=== PATIENT | female | born 1995 | race Caucasian/White ===

== ENCOUNTER 2017-03-15 13:57 | Outpatient (CLI) | payer MEDICAID ==
[2017-03-15 14:25] VITALS: BP 93/53
[2017-03-15 14:32] LABS: BILIRUBIN,URINE NEGATIVE (NEGATIVE); GLUCOSE, URINE (UA) NEGATIVE (NEGATIVE); KETONES,URINE (UA) NEGATIVE (NEGATIVE); LEUKOCYTE ESTERASE, URINE NEGATIVE (NEGATIVE); NITRITE,URINE NEGATIVE (NEGATIVE); OCCULT BLOOD,URINE NEGATIVE (NEGATIVE); PROTEIN,URINE NEGATIVE (NEGATIVE); UROBILINOGEN,URINE 0.2 (NORMAL) E.U./dL (NORMAL)
[2017-03-15 14:33] LABS: CLARITY,URINE CLEAR (CLEAR)
[2017-03-15 14:48] LABS: AMORPHOUS SEDIMENT,UR Rare /LPF; BACTERIA,URINE Rare /HPF (None Seen); RBC,URINE None Seen /HPF (0-5); SQUAMOUS EPITHELIAL CELL,UR FEW Squamous (<= Few)
--- NOTE | 2017-03-15 19:27 | Ultrasound Preliminary Report ---
Exam: US OB LIMITED IMPRESSION: 1. Leong live intrauterine with gestational age 24 weeks 1 day based on current ultraso und for SORAYA 07/04/2017.. [facility] SITE ID: [id number]
--- NOTE | 2017-03-15 19:32 | Ultrasound Report ---
EXAM: LIMITED OBSTETRICAL ULTRASOUND EXAM DATE: 03/15/2017 06:03 PM. CLINICAL HISTORY: Dating, unsure dates. COMPARISON: None. TECHNIQUE: Real-time sonographic evaluation of the fetus performed by the generator repairer. Multiple repre sentative static images were saved for review. GENERAL EVALUATION Leong . Cardiac activity: 154 bpm. movement: Visualized. Presentation: Variable. Placenta: Anterior position. No evidence of previa. Amniotic fluid: Subjectively normal MVP 5.9 cm. biometry: BPD 5.9 cm, 24 weeks 1 day HC 21.8 cm, 23 weeks 6 days AC 20 cm, 24 weeks 5 days FL 4.2 cm, 23 weeks 4 days EFW 671 g ANATOMY Limited anatomic survey demonstrates a normal four-chamber heart, upper and lower extremities, bladde r, lateral ventricles and choroid plexus. No abdominal wall defect seen. MATERNAL STRUCTURES The cervix is closed measuring 5.3 cm in length. The ovaries are normal. No free fluid within the pel vis. IMPRESSION: 1. Leong live intrauterine with gestational age 24 weeks 1 day based on current ultraso und for SORAYA 07/04/2017. [facility] Referring Provider Line: [phone] SITE ID: [id number]
--- NOTE | 2017-04-11 12:23 | PROVIDER PROGRESS NOTE ---
Subjective - Prog Note Date Prog Note Date: 03/15/17 Prog Note Time: 18:00 - Subjective Pt reports feeling: No change Subjective: Patient is a 21-year-old primigravida who only had one OB encounter in [place] with dating ultrasound and subsequently transferred her care to [facility] upon moving to [facility]. She reports left leg numbness without any corresponding edema headaches or visual changes. Her blood pressure is normal. Dating ultrasound was obtained and EFM tracing is category 1. Patient given reassurance and instructed to call our offices if she intends to transfer care.
== END 2017-03-15 17:50 | disposition home or self-care (01) ==
LOC: WFO 13:57 → FBP 14:01 → WFO 17:50
PROVIDERS: ATTEND Obstetrics & Gynecology
DX: O26.892 Other specified pregnancy related conditions, second trimester (principal); R20.0 Anesthesia of skin; Z3A.24 24 weeks gestation of pregnancy
CPT/HCPCS: 76815; 81001; 87086; 99212

== ENCOUNTER 2017-04-30 14:24 | Outpatient (CLI) | payer MEDICAID ==
[2017-04-30 15:45] LABS: HGB - HEMOGLOBIN 10.3 g/dL (12.0-16.0); MEAN CORPUSCULAR HEMOGLOBIN 28.8 pg (27.0-31.0); MEAN CORPUSCULAR HGB CONC 34.4 g/dL (32.0-36.0); MEAN CORPUSCULAR VOLUME 83.9 fL (81.0-99.0); MEAN PLATELET VOLUME 7.7 fL (7.9-10.8); RED BLOOD COUNT 3.58 10^6/uL (4.20-5.40); RED CELL DISTRIBUTION WIDTH 13.2 % (12.0-15.0); WHITE BLOOD COUNT 9.9 x10^3/uL (4.8-10.8)
== END 2017-04-30 14:25 | disposition home or self-care (01) ==
LOC: LAB 14:24
PROVIDERS: ATTEND Obstetrics & Gynecology
DX: Z34.90 Encounter for supervision of normal pregnancy, unspecified, unspecified trimester (principal)
CPT/HCPCS: 36415; 82950; 86850

== ENCOUNTER 2017-05-17 13:02 | Outpatient (CLI) | payer MEDICAID ==
--- NOTE | 2017-05-21 08:56 | Ultrasound Report ---
OB ULTRASOUND: 05/17/2017 HISTORY: Anatomy screen. Last menstrual period: Unknown. First ultrasound: 03/15/2017. TECHNIQUE: Real-time scanning was performed with sales representative graphic art static images obtained. LAST MENSTRUAL PERIOD: 09/27/2016 Clinical Age: 33 weeks 1 day US Age: 33 weeks 6 day EFW Hadlock: 2258 grams EFW% Hadlock: 59% Heart Rate: 132 bpm EDC: 07/04/2017 US EDC: 06/29/2017 BPD Hadlock: 34 weeks 0 days; Mean mm 85 HC Hadlock: 34 weeks 1 day; Mean mm 307 AC Hadlock: 33 weeks 6 days; Mean mm 299 FL Hadlock: 33 weeks 1 day; Mean mm 64 Presentation: breech Placental Location: anterior R Cervical Length: TA 5.4 cm Amniotic Fluid: COURTNEY 26.5; MVP 7.2 cm FINDINGS Evaluation is somewhat limited due to late gestational age. The intracranial and facial structures, heart and outflow tracts, stomach, diaphragm, kidneys, bladder, cord insertion, spine, and all 4 extremities are seen and no gross abnormality is identified. Cervix long and closed 5.4 cm. Amniotic fluid volume 26.5 mL, approximately the 96th percentile. IMPRESSION 1. SINGLE INTRAUTERINE GESTATION WITH AGE BY COMPOSITE ULTRASOUND MEASUREMENTS TODAY 33 WEEKS 6 DAYS, CONCORDANT WITH THE FIRST ULTRASOUND. ESTIMATED WEIGHT IS IN THE 59TH PERCENTILE. 2. BREECH PRESENTATION. 3. COURTNEY 26.5 ML, 96th PERCENTILE. 4. ANATOMIC SCREEN LIMITED BY THE LATE GESTATIONAL AGE, BUT GROSSLY NO ABNORMALITIES ARE SEEN. TD: 05/17/2017 17:04 [facility]
== END 2017-05-17 13:03 | disposition home or self-care (01) ==
LOC: DI 13:02
PROVIDERS: ATTEND Obstetrics & Gynecology
DX: Z36.9 Encounter for antenatal screening, unspecified (principal); O32.1XX0 Maternal care for breech presentation, not applicable or unspecified; O40.3XX0 Polyhydramnios, third trimester, not applicable or unspecified; Z3A.33 33 weeks gestation of pregnancy
CPT/HCPCS: 76811

== ENCOUNTER 2017-06-13 11:26 | Outpatient (CLI) | payer MEDICAID | END 2017-06-13 11:27 | disposition home or self-care (01) | LOC: LAB.R 11:26 | PROVIDERS: ATTEND Obstetrics & Gynecology | DX: Z36.9 Encounter for antenatal screening, unspecified (principal) | CPT/HCPCS: 87077; 87081 ==

== ENCOUNTER 2017-06-20 17:54 | Outpatient (CLI) | payer MEDICAID ==
[2017-06-20 18:10] VITALS: BP 119/65
== END 2017-06-20 19:05 | disposition home or self-care (01) ==
LOC: WFO 17:54 → FBP 17:57 → WFO 19:05
PROVIDERS: ATTEND Obstetrics & Gynecology
DX: O21.2 Late vomiting of pregnancy (principal); O99.89 Other specified diseases and conditions complicating pregnancy, childbirth and the puerperium; R07.81 Pleurodynia; Z3A.37 37 weeks gestation of pregnancy
CPT/HCPCS: 99211

== ENCOUNTER 2017-07-10 08:03 | Inpatient (IN) | payer MEDICAID ==
[2017-07-10 09:31] LABS: RUPTURE OF MEMBRANES PLUS POSITIVE (NEGATIVE)
[2017-07-10] MEDS ORDERED: ONDANSETRON 4 MG/2 ML VIAL IVP PRN (09:35)
[2017-07-10] MEDS ORDERED: PENICILLIN G POTASSIUM 5,000,000 UNIT in SODIUM CHLORIDE 0.9% MINIBAG 100 ML IV ONE (09:35)
[2017-07-10] MEDS ORDERED: SODIUM CHLORIDE FLUSH 0.9% 10 ML SYRINGE IVP PRN (09:35)
[2017-07-10] MEDS ORDERED: OXYTOCIN/SODIUM CHLORIDE 500 ML IV SCH (10:00)
[2017-07-10] MEDS: SODIUM CHLORIDE FLUSH 0.9% 10 ML SYRINGE IVP SCH (12:48)
[2017-07-10] MEDS: LACTATED RINGERS 1,000 ML IV SCH ×3 (12:48→23:03)
--- NOTE | 2017-07-10 12:50 | PROVIDER PROGRESS NOTE ---
Labor Progress Note - Uterine Monitoring Uterine Monitoring Mode: positive: External toco Contraction Frequency (min/apart): Q 4-7 Contraction Intensity: positive: Mild to moderate Uterine Resting Tone: positive: Soft - Monitoring Monitor Mode: positive: External ultrasound Heart Rate Baseline: 120-130's Heart Rate Variability: positive: Moderate (6-25 bmp) Accelerations: positive: Present, 15x15 Decelerations: positive: None Strip Review: positive: Category I - Vaginal Exam Dilation (in cm): Deferred - Labor Progress Note Labor Progress Note/Additional Text: 22 yo with a 40w3d IUP PROM GBS positive Start PCN and pitocin Epidural PRN Expect H&P Dictated [id number]
[2017-07-10 13:04] LABS: BASOPHILS % (AUTO) 0.4 %; EOSINOPHILS # (AUTO) 0.1 10^3/uL (0.0-0.7); HGB - HEMOGLOBIN 11.9 g/dL (12.0-16.0); LYMPHOCYTES # (AUTO) 1.9 10^3/uL (1.5-3.5); LYMPHOCYTES % (AUTO) 16.2 %; MEAN CORPUSCULAR HEMOGLOBIN 27.3 pg (27.0-31.0); MEAN CORPUSCULAR HGB CONC 33.3 g/dL (32.0-36.0); MEAN CORPUSCULAR VOLUME 82.1 fL (81.0-99.0); MEAN PLATELET VOLUME 8.1 fL (7.9-10.8); MONOCYTES # (AUTO) 0.4 10^3/uL (0.0-1.0); MONOCYTES % (AUTO) 3.4 %; NEUTROPHILS # (AUTO) 9.2 10^3/uL (1.5-6.6); PLT - PLATELET COUNT 379 10^3/uL (130-450); RED BLOOD COUNT 4.36 10^6/uL (4.20-5.40); RED CELL DISTRIBUTION WIDTH 15.4 % (12.0-15.0); WHITE BLOOD COUNT 11.6 x10^3/uL (4.8-10.8)
--- NOTE | 2017-07-10 17:35 | PROVIDER PROGRESS NOTE ---
Labor Progress Note - Uterine Monitoring Uterine Monitoring Mode: positive: External toco Contraction Frequency (min/apart): >Q7 min Contraction Intensity: positive: Mild to moderate Uterine Resting Tone: positive: Soft - Monitoring Monitor Mode: positive: External ultrasound Heart Rate Baseline: 130's Heart Rate Variability: positive: Moderate (6-25 bmp) Accelerations: positive: Present, 15x15 Decelerations: positive: None - Vaginal Exam Dilation (in cm): (Deferred) - Labor Progress Note Labor Progress Note/Additional Text: 22 yo with a 40w3d IUP PROM GBS positive Reassuring and maternal status S/p first dose of PCN; will receive next dose shortly Will start pitocin induction of labor Epidural PRN Expect Watch for S/s chorioamnionitis Labs, EKG, Meds, Allergy - Lab Results Fish Bones: 07/10/17 12:45 Other Lab Results: Lab Results x24hrs 07/10/17 07/10/17 Range/Units 12:45 09:10 WBC 11.6 H (4.8-10.8) x10^3/uL RBC 4.36 (4.20-5.40) 10^6/uL Hgb 11.9 L (12.0-16.0) g/dL Hct 35.8 L (37.0-47.0) % MCV 82.1 (81.0-99.0) fL MCH 27.3 (27.0-31.0) pg MCHC 33.3 (32.0-36.0) g/dL RDW 15.4 H (12.0-15.0) % Plt Count 379 (130-450) 10^3/uL MPV 8.1 (7.9-10.8) fL Neut # 9.2 H (1.5-6.6) 10^3/uL Lymph # 1.9 (1.5-3.5) 10^3/uL [place] # 0.4 (0.0-1.0) 10^3/uL Eos # 0.1 (0.0-0.7) 10^3/uL Baso # 0.0 (0.0-0.1) 10^3/uL Absolute Nucleated RBC 0.00 x10^3/uL Nucleated RBC % 0.0 /100WBC Membranes Rupture POSITIVE A (NEGATIVE) - Allergy Allergy: Allergies Allergy/AdvReac Type Severity Reaction Status Date / Time No Known Drug Allergies Allergy Verified 07/10/17 12:04
[2017-07-10] MEDS: PENICILLIN G POTASSIUM 2,500,000 UNIT in SODIUM CHLORIDE 0.9% 100ML 100 ML IV SCH ×3 (18:10→22:00)
--- NOTE | 2017-07-10 18:31 | HISTORY & PHYSICAL EXAMINATION ---
DATE OF SERVICE: 07/10/2017 Physician: Shira Vaca DO IDENTIFICATION: This is a 22-year-old G1, P0 with a 40 and 3/7 week intrauterine . EDC is 07/07/2017, established by a 6-week ultrasound. HISTORY OF PRESENT ILLNESS: This is a patient of [facility] who presented on 07/10/2017 with complaints of spontaneous rupture of membranes. Initial RN examination revealed she was 1 cm dilated, 70% effaced, and -3 station. She is noted to have irregular contractions every 4-7 minutes. heart tones are reactive and category 1 with a baseline in the 120s and 130s. There are no decelerations. AROM Plus was positive and gross fluid was noted on examination. Patient states, however, that the baby is moving well. She denies any vaginal bleeding. Patient is noted to be GBS positive and does not have any known medical allergies. Patient's has been remarkable only for being GBS positive. She was a transfer of care from at about 24 weeks gestation. She had initial care in [place], [place] and later went to [facility]. PAST MEDICAL HISTORY: None. PAST SURGICAL HISTORY: None. ALLERGIES: NO KNOWN DRUG ALLERGIES. SOCIAL HISTORY: She denies any alcohol or illicit drug use. She does not consume tobacco any more. The father of the baby is Antonio and this is a male fetus. Her pharmacy of choice is [facility] and in [place], [place]. She intends to breastfeed and she is open to having epidural for pain control. Her screen printing supervisor will be the on-call physician. PAST OBSTETRICAL HISTORY: Current. PAST GYNECOLOGICAL HISTORY: She denies any abnormal Pap smears or sexually transmitted diseases. Patient was known to have a septated cyst in the right ovary measuring 4.2 x 3.7 x 2.5 cm. FAMILY HISTORY: Noncontributory. REVIEW OF SYSTEMS: Negative unless otherwise stated. She denies any nausea, vomiting, fevers, chills, diarrhea or constipation. PHYSICAL EXAMINATION: VITAL SIGNS: Temperature is 97.9, heart rate 90, blood pressure 118/74, respirations 18, O2 saturation 99% on room air. GENERAL: Patient is a well-developed, well-nourished female in no apparent distress. She is alert and oriented x3. Patient appears to be simple but very pleasant and easy to speak to. HEENT: Within normal limits. CARDIOVASCULAR: Regular. No murmurs or rubs. LUNGS: Lungs are clear to auscultation bilaterally. ABDOMEN: Gravid, nontender. EFW is 7-1/2 pounds. Baby was vertex at her last appointment. LABORATORY DATA: A 6-week ultrasound establish date given unsure dates. On 11/14/2016 at [facility] in [place] an ultrasound showed a single intrauterine with a crown-rump length of 3 cm. Estimated gestational age is 6 weeks 0 days with EDC of 07/10/2017. She had a anatomical survey, which showed an anterior placenta, cervical length of 5.3 cm. GC/CT are both negative. Linden is negative x3 and a male fetus is noted. White blood count on 02/21/2017 is 11.0, H and H at 11.2 and 33.4, platelets 356. Antibody screen is negative, a positive, RPR nonreactive, hepatitis B surface antigen nonreactive, rubella negative. Hemoglobin A1c is 4.9, TSH 1.35. Urinalysis is negative. VZV is negative. HIV nonreactive. On 02/18/2017 one-hour GT is 121. White count of 9.9, H and H 10.3 and 30.1, platelets 377. Antibody screen is negative. GBS is positive. ASSESSMENT: 1. A 22-year-old G1, P0 with a 40 and 3/7 week intrauterine . 2. Premature rupture of membranes. 3. GBS positive. PLAN: 1. We will admit to the hospital. 2. Penicillin 5 million units IV x1 and then 2.5 million units q.4 hours until delivery. 3. Pitocin induction. 4. Expect spontaneous vaginal delivery. 5. Pain control. Patient is welcome to have an epidural when she is in significant pain. TD: 07/10/2017 12:59 ROD
[2017-07-10] MEDS: ACETAMINOPHEN 325 MG TABLET PO SCH ×3 (21:36→22:07)
[2017-07-11] MEDS: PENICILLIN G POTASSIUM 2,500,000 UNIT in SODIUM CHLORIDE 0.9% 100ML 100 ML IV SCH ×6 (03:35→21:54)
[2017-07-11] MEDS: SODIUM CHLORIDE FLUSH 0.9% 10 ML SYRINGE IVP SCH ×3 (03:35→18:10)
[2017-07-11] MEDS: ACETAMINOPHEN 325 MG TABLET PO SCH ×3 (04:35→16:21)
[2017-07-11] MEDS: fentaNYL 100 MCG/2 ML VIAL IVP PRN ×2 (05:58→18:10)
[2017-07-11] MEDS: LACTATED RINGERS 1,000 ML IV SCH ×5 (06:27→23:02)
--- NOTE | 2017-07-11 13:32 | PROVIDER PROGRESS NOTE ---
Labor Progress Note - Uterine Monitoring Uterine Monitoring Mode: positive: External toco Contraction Frequency (min/apart): 3-5 Contraction Intensity: positive: Moderate Uterine Resting Tone: positive: Soft - Monitoring Monitor Mode: positive: External ultrasound Heart Rate Variability: positive: Moderate (6-25 bmp) Accelerations: positive: Present, 15x15 Decelerations: positive: Late (Pt had 6 lateds in a row but was noted to have varribility.) Strip Review: positive: Category II - Vaginal Exam Dilation (in cm): 4 Effacement (%): 90 Station: -1 Cervical Position: Midposition - Labor Progress Note Labor Progress Note/Additional Text: Pt was having jamee lates with variability and accelerations. Pit halved. will continue with pitocin. Pt may have epidural when desired.
--- NOTE | 2017-07-11 16:36 | PROVIDER PROGRESS NOTE ---
Labor Progress Note - Uterine Monitoring Contraction Frequency (min/apart): 3-4 Contraction Intensity: positive: Moderate Uterine Resting Tone: positive: Soft - Monitoring Monitor Mode: positive: External ultrasound Heart Rate Baseline: 130 Heart Rate Variability: positive: Moderate (6-25 bmp) Accelerations: positive: Present, 15x15 Decelerations: positive: None Strip Review: positive: Category I - Labor Progress Note Labor Progress Note/Additional Text: Exam not done. will recheck 1800. consider IUPC.
--- NOTE | 2017-07-11 17:47 | PROVIDER PROGRESS NOTE ---
Labor Progress Note - Uterine Monitoring Uterine Monitoring Mode: positive: External toco Contraction Frequency (min/apart): 3 Contraction Intensity: positive: Moderate to strong Uterine Resting Tone: positive: Soft - Monitoring Monitor Mode: positive: External ultrasound Heart Rate Baseline: 130 Heart Rate Variability: positive: Moderate (6-25 bmp) Accelerations: positive: Present, 15x15 Decelerations: positive: None Strip Review: positive: Category I - Vaginal Exam Dilation (in cm): 5-6 Effacement (%): 100% Station: -1 Cervical Position: Midposition - Labor Progress Note Labor Progress Note/Additional Text: Slow progress. Strip improved with oral hydration. will not place IUPC fro now. push pitocin. Pt is aware of Epidural if desired.
[2017-07-11] MEDS ORDERED: ROPIVACAINE 0.2% PF 10 ML VIAL EPI ONE (20:15)
[2017-07-11] MEDS ORDERED: fent/BUPIV 2 MCG/0.125% 250 ML EP ONE (20:23)
[2017-07-11] MEDS ORDERED: LACTATED RINGERS 500 ML IV ONE (20:41)
[2017-07-11] MEDS ORDERED: ONDANSETRON 4 MG/2 ML VIAL IVP PRN (20:41)
[2017-07-11] MEDS ORDERED: ePHEDrine 50 MG/ML VIAL IVP PRN (20:41)
[2017-07-11] MEDS ORDERED: NALOXONE 0.4 MG/ML VIAL IVP PRN (20:41)
[2017-07-11] MEDS ORDERED: METOCLOPRAMIDE 10 MG/2 ML VIAL IVP PRN (20:41)
[2017-07-11] MEDS ORDERED: NALBUPHINE 10 MG/ML AMP IVP PRN (20:41)
[2017-07-11] MEDS ORDERED: diphenhydrAMINE INJ 50 MG/ML VIAL IVP PRN (20:41)
[2017-07-11] MEDS ORDERED: fent/BUPIV 2 MCG/0.125% 250 ML EP PRN (20:41)
--- NOTE | 2017-07-12 00:34 | PROVIDER PROGRESS NOTE ---
Labor Progress Note - Uterine Monitoring Contraction Frequency (min/apart): 3-4 Contraction Intensity: positive: Strong Uterine Resting Tone: positive: Soft - Monitoring Monitor Mode: positive: External ultrasound Heart Rate Baseline: 120 Heart Rate Variability: positive: Moderate (6-25 bmp) Accelerations: positive: Present, 15x15 (responds to scalp stimulation) Decelerations: positive: Early (varrible) Strip Review: positive: Category II - Vaginal Exam Dilation (in cm): 10 Effacement (%): 100% Station: 1 Cervical Position: Anterior - Labor Progress Note Labor Progress Note/Additional Text: head LOT mother rolled to the right side baby didn't tolerate well. rolled back.
[2017-07-12] MEDS ORDERED: LIDOCAINE 1% 50 ML MDV ONE (01:27)
[2017-07-12] MEDS ORDERED: METHYLERGONOVINE 0.2 MG/ML AMP ONE (01:28)
[2017-07-12] MEDS ORDERED: MINERAL OIL LIGHT 10 ML MC ONE (01:36)
[2017-07-12] MEDS ORDERED: LACTATED RINGERS 1,000 ML IV ONE (01:42)
[2017-07-12] MEDS ORDERED: diphenhydrAMINE 25 MG CAPSULE PO PRN (03:42)
[2017-07-12] MEDS ORDERED: WITCH HAZEL/GLYCERIN 1 EACH MED..PAD TOP PRN (03:42)
[2017-07-12] MEDS ORDERED: OXYTOCIN/SODIUM CHLORIDE 250 ML IV SCH (03:42)
--- NOTE | 2017-07-12 03:50 | DELIVERY NOTE ---
Delivery Note - Labor Labor: positive: Induced by oxytocin - Delivery Method Delivery Method: positive: Vacuum assist - Presentation Presentation: positive: Vertex, OA - occiput anterior - Nuchal Cord Nuchal Cord: positive: None - Anesthetic Anesthetic Type: Anesthetic: positive: Lidocaine - 1% plain - Amniotic Fluid Description Amniotic Fluid Description: positive: Clear (second stage Mec) - Vacuum Use Indication for Vacuum Use: positive: Suspicion of immediate or potential compromise Type of Vacuum Cup: positive: Cup: Mushroom Type Vacuum Extraction: positive: Successful (pulled thru 3 contractions. Popoff with first contraction) - Episiotomy Type Episiotomy Type: positive: Midline (4th degree) - Laceration Laceration: positive: Labial (bilateral) - Suture Suture Type: positive: Vicryl Suture Size: positive: 2-0 (for rectal sphinctor), 3-0 (for the remaindure) - Delivery Outcome Delivery Outcome: positive: Livebirth (male, apgars 5/8, weight 8lb 4 oz.) - Ridgeville Ridgeville: positive: Bulb syringe, Stimulated, Warmed sex: positive: Male - Cord Cord: positive: 3 vessels - Placenta Placenta: positive: Intact, Spontaneous - Estimated Blood Loss Estimated Blood Loss (in cc): 500 - Delivery Comments (Free Text/Narrative) Delivery Comments (Free Text/Narrative): 3:10 shoulder dystocia. episiotomy cut followed with episoproctomy cut. delivered posterior shoulder first dictation [id number].
[2017-07-12] MEDS ORDERED: LACTATED RINGERS 1,000 ML IV SCH (04:00)
[2017-07-12] MEDS: IBUPROFEN 800 MG TABLET PO SCH ×4 (06:00→23:58)
[2017-07-12] MEDS: HYDROCORTISONE/PRAMOXINE 10 GM PR PRN ×2 (06:01→15:05)
[2017-07-12 06:11] LABS: BASOPHILS % (AUTO) 0.3 %; EOSINOPHILS % (AUTO) 0.1 %; HGB - HEMOGLOBIN 8.5 g/dL (12.0-16.0); LYMPHOCYTES # (AUTO) 1.5 10^3/uL (1.5-3.5); LYMPHOCYTES % (AUTO) 8.5 %; MEAN CORPUSCULAR HEMOGLOBIN 27.1 pg (27.0-31.0); MEAN CORPUSCULAR HGB CONC 32.7 g/dL (32.0-36.0); MEAN CORPUSCULAR VOLUME 82.8 fL (81.0-99.0); MEAN PLATELET VOLUME 7.8 fL (7.9-10.8); MONOCYTES # (AUTO) 0.9 10^3/uL (0.0-1.0); MONOCYTES % (AUTO) 4.8 %; NEUTROPHILS # (AUTO) 15.5 10^3/uL (1.5-6.6); NEUTROPHILS % (AUTO) 86.3 %; PLT - PLATELET COUNT 340 10^3/uL (130-450); RED BLOOD COUNT 3.15 10^6/uL (4.20-5.40); RED CELL DISTRIBUTION WIDTH 14.9 % (12.0-15.0); WHITE BLOOD COUNT 17.9 x10^3/uL (4.8-10.8)
--- NOTE | 2017-07-12 06:56 | OPERATIVE REPORT ---
DATE OF SERVICE: 07/12/2017 Physician: Pavan Logan MD DIAGNOSES 1. Term cyesis 40 weeks and 5 days. 2. Spontaneous rupture of membranes without labor. 3. Pitocin induction. 4. Vacuum-assisted vaginal delivery. 5. Shoulder dystocia. DESCRIPTION OF OPERATION: The patient reached complete at roughly 1800 on the morning of 07/12/2017. She was allowed to labor down. Her strip prior to delivery had episodes of late decelerations which responded to IV fluids as well as position change. During her second stage, she developed episodes of bradycardia down to the 80s which did, however respond. Because of concerns of wellbeing, she started pushing at 0130. She pushed well and at 0207, she delivered a live male infant with Apgars 5 and 8, weighing 8 pounds 4 ounces. Her delivery itself was complicated with a shoulder dystocia, which lasted for 3 minutes and 10 seconds. During this time, initially she was treated with Darcy maneuvers as well as suprapubic pressure to try and dislodge the shoulder. This was unsuccessful, so an episiotomy was cut. Attempts were made to add a corkscrew maneuver to see if the baby could be rotated, this was unsuccessful. Trying to reach to see if there was a hand was also unsuccessful. At this point, an episioproctotomy was cut and was able to reach the posterior shoulder, which was the left arm. This was brought across the chest and delivered, following which the remainder of the infant delivered. The baby was taken immediately over to the warmer, at which time the baby was given PPV. The library technology instructor was present as well as 2 additional nurses. The baby responded fairly quickly and had a heart rate initially in the 140s. Cord blood gases were obtained at time of delivery; they were noted to be 7.32 and 7.35. The placenta followed at 0220. It was inspected and felt to be complete. Upon inspection, the vaginal area showed evidence of episioproctotomy as previously cut. There was also labial lacerations on either side anteriorly. The rectal mucosa was closed utilizing 3-0 Vicryl. Following this, the sphincter was closed utilizing 2-0 Vicryl in [id number] both anterior, superior, posterior, and inferior. Care was taken to reapproximate this. An additional 2 sutures were placed in the rectovaginal fascial area to try and bring this back together. The vaginal mucosa was then closed using a running locking suture of 3-0 Vicryl. The perineum was rebuilt with additional interrupted sutures of 3-0 Vicryl. Following this, a standard Z stitch was used as well as a subcuticular stitch and brought up to the perineum. There was evidence of good repair and no bleeding from this area. At this point, both labial lacerations were closed with 3-0 Vicryl subcuticular. Because of the trauma, a Carmen catheter was placed. Sponge and needle counts were performed and these were both noted to be correct. The vaginal pack, which was used, was also noted to be also out of the vagina. The patient tolerated the delivery well. A Carmen catheter was placed to allow to her to be able to get rest tonight and will be removed in the morning. TD: 07/12/2017 04:10 ROD
[2017-07-12] MEDS: oxyCODONE 5 MG TABLET PO PRN ×4 (09:46→23:22)
[2017-07-12] MEDS: ACETAMINOPHEN 500 MG TABLET PO PRN ×3 (09:46→22:32)
--- NOTE | 2017-07-12 13:37 | ANESTHESIA POST OP EVALUATION ---
Anesthesia Post Eval - Other Details/Therapies Other Details/Therapies: Post epidural placement: Patient states no back pain or headache. Does state that right foot and up to knee is still numb. able to ambulate without problem. States she was satisfied with the epidural.
[2017-07-12] MEDS ORDERED: MAGNESIUM HYDROXIDE 2,400 MG/30 ML UDC PO SCH (21:00)
[2017-07-12] MEDS: DOCUSATE SODIUM 250 MG CAPSULE PO SCH (21:08)
[2017-07-13] MEDS: ACETAMINOPHEN 500 MG TABLET PO PRN ×3 (04:36→16:33)
[2017-07-13] MEDS: IBUPROFEN 800 MG TABLET PO SCH ×3 (06:02→20:04)
[2017-07-13] MEDS: DOCUSATE SODIUM 250 MG CAPSULE PO SCH ×2 (08:44→20:11)
[2017-07-13] MEDS ORDERED: LACTULOSE 10 GM /15 ML UDC PO SCH (09:00)
--- NOTE | 2017-07-13 10:33 | PROVIDER PROGRESS NOTE ---
Subjective - General Admit Date: 07/10/17 Procedure Date: 07/12/17 Post Op Days: 1 Procedure Performed: Complicated Vag Del w Shoulder Dystocia & 4th deg Proctoepisotomy - Review of Systems Wound/Incisions: positive: No drainage, Erythema, Other Drain Type: Carmen removed General: positive: Fatigue, Other (No fever or night sweats) HEENT: positive: No symptoms Pulmonary: positive: No symptoms Cardiovascular: positive: No symptoms Gastrointestinal: positive: Flatus, Other (No passage of stool) Genitourinary: positive: Other (Repair intact) Musculoskeletal: positive: No symptoms Skin: positive: No symptoms Psychiatric: positive: No symptoms Objective - Patient Data Vital Signs: Vital Signs x48h Temp Pulse Resp BP Pulse Ox 07/13/17 07:47 72 18 100/57 L 100 07/13/17 04:10 98.2 F 61 18 92/45 L 99 Intake & Output: Intake and Output Totals x24h 07/11/17 07/12/17 07/13/17 23:59 23:59 23:59 Intake Total 4147.5 550 360 Output Total 1 3925 705 Balance 4146.5 -3375 -345 - Lab Results Lab Results: 07/12/17 05:34 - Current Medications Current Medications: Current Medications Generic Name Dose Route Start Last Admin Trade Name Freq PRN Reason Stop Dose Admin Acetaminophen 1,000 mg 07/12/17 09:07 07/13/17 10:09 Tylenol PO 1,000 mg Q6HR PRN Administration Pain or Fever > 38C (100.4F) Docusate Sodium 250 mg 07/12/17 21:00 07/13/17 08:44 Colace 250mg Capsule PO 250 mg BID SAM Administration Hydrocortisone/Pramoxine 1 spray 07/12/17 03:42 07/12/17 15:05 Epifoam VA 5 spray QID PRN Administration Hemorrhoids Lactated Ringer's 1,000 mls @ 100 mls/hr 07/12/17 04:00 07/12/17 10:48 Lr IV 100 mls/hr .Q10H SAM Administration Ibuprofen 800 mg 07/12/17 04:00 07/13/17 06:02 Motrin PO 800 mg Q6H SAM Administration Lactulose 10 gm 07/13/17 09:00 07/13/17 08:43 Enulose PO 10 gm DAILY SAM Administration Magnesium Hydroxide 2,400 mg 07/12/17 21:00 07/12/17 21:08 Milk Of Magnesia PO 2,400 mg QPM SAM Administration Oxycodone HCl 5 mg 07/12/17 03:42 07/12/17 23:22 Roxicodone PO 5 mg Q4HR PRN Administration Severe Pain Physical Exam - Physical Exam General Appearance: WD/WN, no apparent distress Eyes, Ears, Nose, Throat Exam: normal ENT inspection, other (Moist mucous membranes) Cardiovascular/Respiratory: regular rate, rhythm, no M/R/G, normal breath sounds Gastrointestinal/Abdominal: Normal bowel sounds, Non tender, Soft Pelvic Exam: external exam normal (Repair intact), other (Uterus 18 weeks size firm) Extremity: normal range of motion, non-tender Neurologic: normal mood/affect, oriented x 3 Skin Exam: warm/dry Assessment/Plan - Assessment/Plan Assessment: Fourth degree laceration care requires careful and intense wound care including high-fiber diet, pushing fluids, and sitz bath. Patient is just recovering function after episiotomy and traumatic delivery. We discussed the importance of her involvement in perineal care. We also discussed the review risks of repair disruption if she experiences constipation. Patient is breast-feeding well and has no symptoms of mood disturbance/ dysphoria. Plan: PLAN * Colace 250 mg twice daily; * lactulose every morning; * milk of magnesia nightly; * sitz bath or shower perineal washings; * continued supportive care * I would preferred to keep the patient until she has her first bowel movement.
[2017-07-13 12:19] LABS: BASOPHILS # (AUTO) 0.1 10^3/uL (0.0-0.1); BASOPHILS % (AUTO) 0.5 %; EOSINOPHILS # (AUTO) 0.3 10^3/uL (0.0-0.7); HGB - HEMOGLOBIN 7.6 g/dL (12.0-16.0); LYMPHOCYTES # (AUTO) 2.2 10^3/uL (1.5-3.5); LYMPHOCYTES % (AUTO) 20.2 %; MEAN CORPUSCULAR HEMOGLOBIN 27.5 pg (27.0-31.0); MEAN CORPUSCULAR HGB CONC 33.1 g/dL (32.0-36.0); MEAN CORPUSCULAR VOLUME 83.1 fL (81.0-99.0); MEAN PLATELET VOLUME 7.7 fL (7.9-10.8); MONOCYTES # (AUTO) 0.5 10^3/uL (0.0-1.0); MONOCYTES % (AUTO) 4.7 %; NEUTROPHILS # (AUTO) 7.8 10^3/uL (1.5-6.6); NEUTROPHILS % (AUTO) 71.6 %; PLT - PLATELET COUNT 317 10^3/uL (130-450); RED BLOOD COUNT 2.77 10^6/uL (4.20-5.40); RED CELL DISTRIBUTION WIDTH 15.1 % (12.0-15.0); WHITE BLOOD COUNT 10.9 x10^3/uL (4.8-10.8)
[2017-07-13] MEDS ORDERED: diphenhydrAMINE 25 MG CAPSULE PO PRN (18:50)
[2017-07-13] MEDS ORDERED: oxyCODONE 5 MG TABLET PO PRN (18:51)
[2017-07-13] MEDS ORDERED: ACETAMINOPHEN 500 MG TABLET PO PRN (18:51)
--- NOTE | 2017-07-13 20:32 | PROVIDER PROGRESS NOTE ---
Subjective - General Admit Date: 07/10/17 Procedure Date: 07/12/17 Post Op Days: 1 Procedure Performed: Complicated Vag Del w Shoulder Dystocia & 4th deg Proctoepisotomy - Review of Systems Wound/Incisions: positive: No drainage, Other (Patient had a uneventful bowel movement without any sensation of tearing) Drain Type: Carmen removed General: positive: Fatigue (Patient is fatigued and has a hemoglobin of 7.8. She is been able to walk around care for her baby and shower. We discussed her anemia and at this point she does not want transfusion.), Other (No fever or night sweats) HEENT: positive: No symptoms Pulmonary: positive: No symptoms Cardiovascular: positive: No symptoms Gastrointestinal: positive: Flatus, Other (Patient reports passage of a small amount of soft stool. No rectal bleeding reported) Genitourinary: positive: Other (Repair intact) Musculoskeletal: positive: No symptoms Skin: positive: No symptoms Psychiatric: positive: No symptoms - Other Other Information/Narrative: Patient feels well and is working on her breast-feeding technique diligently. Though fatigued due to anemia she does not feel impaired and is starting to recover the activities of daily living. She is hemodynamically stable. We will continue stool softeners and reevaluate in the morning. Objective - Patient Data Vital Signs: Vital Signs x48h Pulse Resp BP Pulse Ox 07/13/17 17:08 76 18 112/69 100 Intake & Output: Intake and Output Totals x24h 07/11/17 07/12/17 07/13/17 23:59 23:59 23:59 Intake Total 4147.5 550 860 Output Total 1 3925 1155 Balance 4146.5 -3375 -295 - Lab Results Lab Results: 07/13/17 12:00 Other Lab Results: Lab Results x24hrs 07/13/17 Range/Units 12:00 WBC 10.9 H (4.8-10.8) x10^3/uL RBC 2.77 L (4.20-5.40) 10^6/uL Hgb 7.6 L (12.0-16.0) g/dL Hct 23.0 L (37.0-47.0) % MCV 83.1 (81.0-99.0) fL MCH 27.5 (27.0-31.0) pg MCHC 33.1 (32.0-36.0) g/dL RDW 15.1 H (12.0-15.0) % Plt Count 317 (130-450) 10^3/uL MPV 7.7 L (7.9-10.8) fL Neut # (Auto) 7.8 H (1.5-6.6) 10^3/uL Lymph # (Auto) 2.2 (1.5-3.5) 10^3/uL [place] # (Auto) 0.5 (0.0-1.0) 10^3/uL Eos # (Auto) 0.3 (0.0-0.7) 10^3/uL Baso # (Auto) 0.1 (0.0-0.1) 10^3/uL Absolute Nucleated RBC 0.00 x10^3/uL Nucleated RBC % 0.0 /100WBC - Current Medications Current Medications: Current Medications Generic Name Dose Route Start Last Admin Trade Name Freq PRN Reason Stop Dose Admin Docusate Sodium 250 mg 07/13/17 21:00 07/13/17 20:11 Colace 250mg Capsule PO 250 mg BID SAM Administration Hydrocortisone/Pramoxine 1 spray 07/12/17 03:42 07/12/17 15:05 Epifoam ME 5 spray QID PRN Administration Hemorrhoids Lactated Ringer's 1,000 mls @ 100 mls/hr 07/12/17 04:00 07/12/17 10:48 Lr IV 100 mls/hr .Q10H SAM Administration Ibuprofen 800 mg 07/13/17 19:00 07/13/17 20:04 Motrin PO 800 mg Q6H SAM Administration Magnesium Hydroxide 2,400 mg 07/13/17 21:00 07/13/17 20:08 Milk Of Magnesia PO 2,400 mg QPM SAM Administration
[2017-07-13] MEDS ORDERED: MAGNESIUM HYDROXIDE 2,400 MG/30 ML UDC PO SCH (21:00)
[2017-07-14] MEDS: IBUPROFEN 800 MG TABLET PO SCH ×2 (02:11→08:38)
[2017-07-14] MEDS: DOCUSATE SODIUM 250 MG CAPSULE PO SCH (08:37)
[2017-07-14] MEDS ORDERED: LACTULOSE 10 GM /15 ML UDC PO SCH (09:00)
--- NOTE | 2017-07-14 09:30 | Discharge Plan ---
Discharge Plan Disposition: 01 Home, Self Care Condition: Stable Diet: Regular (Not regular, high fiber high protein high iron. Patient is to have a dietitian consult either before discharge or shortly thereafter.) Activity Restrictions: Activity as Tolerated Shower Restrictions: No (Recommend daily shower and wound wash) Driving Restrictions: Yes (Driving restricted for 7 days, no driving while taking narcotics) Weight Bearing: Full Weight Follow-Up Care: Dietitian (Needs social work consult as well) No Smoking: If you smoke, Please STOP! Call for help. Follow-up with: Pavan Logan MD [Provider Admit Priv/Credential] -
[2017-07-14] MEDS ORDERED: SODIUM CHLORIDE FLUSH 0.9% 10 ML SYRINGE ONE (10:12)
[2017-07-14] MEDS ORDERED: FERRIC GLUCONATE 125 MG in SODIUM CHLORIDE 0.9% 100ML 100 ML IV ONE (11:00)
[2017-07-14 16:22] VITALS: BP 116/63
--- NOTE | 2017-07-15 04:49 | DISCHARGE SUMMARY ---
Physician: Pavan Mcdaniel MD DATE OF ADMISSION: 07/10/2017 DATE OF DISCHARGE: 07/14/2017 DIAGNOSES 1. Term , in labor. 2. Group B streptococcus positive. 3. Complicated delivery with shoulder dystocia, including proctoepisiotomy to resolve. 4. Severe anemia. PROCEDURE: Vaginal delivery complicated by shoulder dystocia necessitating proctoepisiotomy and repair (Dr. Pavan Logan). COMPLICATIONS: Shoulder dystocia. HISTORY: The patient is a 22-year-old primigravida at 40 weeks 3 days who was admitted at noon on July [address] Vaca. The patient had ruptured membranes at the time, and dilatation was 1 cm, 70% effaced, and -3 station. The patient was begun on penicillin prophylaxis and Pitocin drip. Reference Dr. Vaca's dictated note. On July 11, Dr. Pavan Logan assumed care and continued Pitocin but noted some subtle lates and declared a category 2 strip. The patient became complete at or about 0040 hours on July 12. Tracing changes continued, and strip continued to be category 2. The fetus did respond to scalp stimulation. At about 3:00, the patient delivered with the aid of a vacuum that required 3 successful attempts and 1 pop-off. The vacuum was prompted by suspicion of potential compromise. Unfortunately, shoulder dystocia ensued that was severe and did not resolve with Darcy procedure and corkscrew. To salvage the fetus, proctoepisiotomy was accomplished. Total shoulder dystocia time, 3 minutes 10 seconds. Estimated blood loss was 500. A living male weighing 8 pounds 4 ounces and scoring Apgars of 5 and 8 was born. There was no evident neurologic damage of the . On July 13, Dr. Pavan Mcdaniel assumed care responsibilities. The patient was recovering well. She was begun on a high fiber protocol for the fourth-degree extension. She remained afebrile and hemodynamically stable. She was noted to be severely anemic with a hemoglobin of 8.5. She continued her activities. Bowel protocol included Colace 250 b.i.d. with lactulose 10 grams daily in the morning and evening, 2400 mg of milk of magnesia. On July 13, patient had a small formed bowel movement that did not result in any compromise of the repair. Her hemoglobin equilibrated at 7.9. Transfusion was discussed in order to improve fatigue and provide better wound healing. After discussion and contemplation, patient rejected transfusion because she feels well enough. 120 mg of ferrous gluconate IV transfusion was given. We had an extensive discussion of fourth-degree lacerations and the need for fastidious wound care. We discussed daily sitz baths and/or shower cleansing of the area. A high fiber diet and fiber supplementation protocol was discussed. A high protein diet also was discussed. The patient is currently taking an iron supplement of 64 mg daily, which she tolerates well. She was instructed to double that to a b.i.d. regimen and continue vitamins. Arrangements for instruction on a high protein, high fiber diet were made. The patient was originally to meet with social work, but they are not available on the weekend. We will arrange a post-discharge social work consult as well as dietary. The patient will see Dr. Logan early this week for wound check. DISCHARGE MEDICATIONS 1. Acetaminophen 1000 q.6 hours p.r.n. 2. Colace 250 b.i.d. 3. Epifoam 1 spray p.r.n. q.i.d. 4. Motrin 800 mg q.6 hours. 5. Lactulose 10 mg daily. 6. Oxycodone 5 mg q.4 hours p.r.n. severe breakthrough pain. Prior to discharge, nursing reviewed and reinforced wound care instructions. The patient is instructed to call the office or on-call provider if she develops constipation, rectal bleeding, foul discharge, fever, rectal pain, or syncopal episode. TD: 07/14/2017 09:40 ROD
== END 2017-07-14 16:15 | disposition home or self-care (01) | DRG 775 ==
LOC: WFO 08:03 → FBP 08:05 → WFO 09:34 → FBP 09:35 → UNDODISIN 07-13 18:18
PROVIDERS: ADMIT Obstetrics & Gynecology; ATTEND Obstetrics & Gynecology
PROC: 3E033VJ Introduction of Other Hormone into Peripheral Vein, Percutaneous Approach (ICD-10-PCS; 2017-07-10)
PROC: 10D07Z6 Extraction of Products of Conception, Vacuum, Via Natural or Artificial Opening (ICD-10-PCS; principal; 2017-07-12)
PROC: 0W8NXZZ Division of Female Perineum, External Approach (ICD-10-PCS; 2017-07-12)
PROC: 0HQ9XZZ Repair Perineum Skin, External Approach (ICD-10-PCS; 2017-07-12)
DX: O42.12 Full-term premature rupture of membranes, onset of labor more than 24 hours following rupture (principal); O41.1230 Chorioamnionitis, third trimester, not applicable or unspecified; D62 Acute posthemorrhagic anemia; Z3A.40 40 weeks gestation of pregnancy; Z37.0 Single live birth; O99.824 Streptococcus B carrier state complicating childbirth; O77.0 Labor and delivery complicated by meconium in amniotic fluid; O70.0 First degree perineal laceration during delivery; O66.0 Obstructed labor due to shoulder dystocia; O76 Abnormality in fetal heart rate and rhythm complicating labor and delivery; O99.02 Anemia complicating childbirth; Z87.891 Personal history of nicotine dependence
CPT/HCPCS: 36415; 84112; 85025; 88307; 99212

== ENCOUNTER 2017-08-05 23:14 | Emergency (ER) | payer MEDICAID ==
--- NOTE | 2017-08-05 23:44 | ED Physician Documentation ---
PD HPI BACK PAIN - Stated complaint Stated Complaint: BACK PX - Chief complaint Chief Complaint: Back Pain - History obtained from History obtained from: Patient - History of Present Illness Timing - onset: How many weeks ago (3) Timing - details: Abrupt onset, Intermittant (episodes lasting 30-45 minutes) Location: Mid Quality: Pain Associated symptoms: No: Fever Improves with: Nothing Worsened by: Other (no apparent inciting/exacerbating factors) Recently seen: Not recently seen - Additional information Additional information: gave 4 weeks ago; chief c/o is 3 weeks of episodic mid-level back pain that radiates around sides/flanks, usually R>L. denies anterior chest or abdominal pain. episodes last 30-45 minutes and have no apparent inciting/ exacerbating/ameliorating factors. Review of Systems Constitutional: denies: Fever, Chills, Sweats Cardiac: reports: Reviewed and negative Respiratory: reports: Reviewed and negative GI: reports: Abdominal Pain (bilateral flanks of abdomen, although not anterior) . denies: Nausea, Vomiting, Constipation, Diarrhea : reports: Frequency. 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: None : None HEENT: None Psych: None Musculoskeletal: None Derm: None - Past Surgical History Past Surgical History: No - Allergies Allergies/Adverse Reactions: Allergies Allergy/AdvReac Type Severity Reaction Status Date / Time No Known Drug Allergies Allergy Verified 08/05/17 23:28 - Social History Does the pt smoke?: No Smoking Status: Never smoker Does the pt drink ETOH?: No Does the pt have substance abuse?: No - Immunizations Immunizations are current?: Yes - POLST Patient has POLST: No PD ED PE NORMAL - Vitals Vital signs reviewed: Yes - General General: Alert and oriented X 3, No acute distress, Well developed/nourished - Cardiac Cardiac: RRR, No murmur - Respiratory Respiratory: No respiratory distress, Clear bilaterally - Abdomen Abdomen: Soft, Non tender, Non distended - Back Back: No CVA TTP, No spinal TTP - Derm Derm: No rash Results - Vitals Vitals: Vital Signs - 24 hr 08/05/17 08/06/17 08/06/17 23:26 00:13 00:47 Temperature 36.4 C L Heart Rate 73 Respiratory 16 16 16 Rate Blood Pressure 115/62 O2 Saturation 98 08/06/17 01:24 Temperature 37.1 C Heart Rate 87 Respiratory 18 Rate Blood Pressure 108/87 H O2 Saturation 98 Oxygen O2 Source Room air - Labs Labs: Laboratory Tests 08/06/17 08/06/17 00:24 00:24 WBC 9.4 RBC 4.09 L Hgb 11.3 L Hct 34.5 L MCV 84.5 MCH 27.8 MCHC 32.8 RDW 14.9 Plt Count 361 MPV 6.7 L Neut # (Auto) 5.6 Lymph # (Auto) 2.9 Ripley # (Auto) 0.5 Eos # (Auto) 0.4 Baso # (Auto) 0.1 Absolute Nucleated RBC 0.00 Nucleated RBC % 0.0 Sodium 142 Potassium 3.6 Chloride 107 Carbon Dioxide 27 Anion Gap 8.0 BUN 15 Creatinine 0.8 Estimated GFR (MDRD) 89 Glucose 93 Calcium 9.7 Total Bilirubin 0.3 AST 56 H ALT 31 Alkaline Phosphatase 89 Total Protein 7.7 Albumin 4.0 Globulin 3.7 Albumin/Globulin Ratio 1.1 Lipase 32 - Rads (name of study) RUQ US Radiology: Prelim report reviewed, See rad report PD MEDICAL DECISION MAKING - ED course Complexity details: reviewed results, re-evaluated patient, considered differential, d/w patient ED course: US reveals gallstones, although they are quite small and mobile. The description of her symptoms, the location, and episodic nature are c/w biliary colic. I discussed results with patient and instructed her to f/u with gen. surgery. I explained that it is possible the gallstones are an incidental finding and not the cause of her pain, although further emergent testing is not indicated at this time regarding other causes. - Sepsis Event Vital Signs: Vital Signs - 24 hr 08/05/17 08/06/17 08/06/17 23:26 00:13 00:47 Temperature 36.4 C L Heart Rate 73 Respiratory 16 16 16 Rate Blood Pressure 115/62 O2 Saturation 98 08/06/17 01:24 Temperature 37.1 C Heart Rate 87 Respiratory 18 Rate Blood Pressure 108/87 H O2 Saturation 98 Oxygen O2 Source Room air Departure - Departure Disposition: 01 Home, Self Care Clinical Impression: Gallstones Back pain Qualifiers: Back pain location: low back pain Chronicity: acute Back pain laterality: bilateral Sciatica presence: without sciatica Qualified Code(s): M54.5 - Low back pain Condition: Good Instructions: ED Abdominal Pain Gallstone Poss, ED Neck Back Pain General Follow-Up: Joaquim Garrison MD [Provider Admit Priv/Credential] - Comments: The ultrasound shows that you have several small gallstones. Based on the description of your symptoms, I suspect the gallstones are causing your painful episodes. You should follow up with a general surgeon to discuss further testing and/or treatment of this problem. It is possible the gallstones are coincidental, and that something else is causing the pain. Based on your exam and blood tests, there does not appear to be a serious or obvious cause of your pain besides the gallstones at this time. Further testing might be necessary if it is determined that the gallstones are not causing your pain. You can also follow up with your primary care physician to discuss further testing. You should return to the emergency department if the pain becomes severe, or if new symptoms develop (such as fever or vomiting blood). Discharge Date/Time: 08/06/17 01:24
[2017-08-06 00:31] LABS: BASOPHILS # (AUTO) 0.1 10^3/uL (0.0-0.1); BASOPHILS % (AUTO) 0.6 %; EOSINOPHILS # (AUTO) 0.4 10^3/uL (0.0-0.7); EOSINOPHILS % (AUTO) 4.2 %; HGB - HEMOGLOBIN 11.3 g/dL (12.0-16.0); LYMPHOCYTES # (AUTO) 2.9 10^3/uL (1.5-3.5); LYMPHOCYTES % (AUTO) 31.1 %; MEAN CORPUSCULAR HEMOGLOBIN 27.8 pg (27.0-31.0); MEAN CORPUSCULAR HGB CONC 32.8 g/dL (32.0-36.0); MEAN CORPUSCULAR VOLUME 84.5 fL (81.0-99.0); MEAN PLATELET VOLUME 6.7 fL (7.9-10.8); MONOCYTES # (AUTO) 0.5 10^3/uL (0.0-1.0); MONOCYTES % (AUTO) 4.8 %; NEUTROPHILS # (AUTO) 5.6 10^3/uL (1.5-6.6); NEUTROPHILS % (AUTO) 59.3 %; PLT - PLATELET COUNT 361 10^3/uL (130-450); RED BLOOD COUNT 4.09 10^6/uL (4.20-5.40); RED CELL DISTRIBUTION WIDTH 14.9 % (12.0-15.0); WHITE BLOOD COUNT 9.4 x10^3/uL (4.8-10.8)
[2017-08-06 00:42] LABS: ALBUMIN/GLOBULIN RATIO 1.1 (1.0-2.2); BILIRUBIN,TOTAL 0.3 mg/dL (0.2-1.0); CALCIUM 9.7 mg/dL (8.5-10.3); CREATININE 0.8 mg/dL (0.4-1.0); TOTAL PROTEIN 7.7 g/dL (6.7-8.2)
--- NOTE | 2017-08-06 01:05 | Ultrasound Report ---
Procedure Date: 08/06/2017 Accession Number: [id number] / [id number] Procedure: US - Abdomen Limited CPT Code: FULL RESULT: EXAM: ABDOMEN ULTRASOUND LIMITED, RUQ EXAM DATE: 08/06/2017 12:42 AM. CLINICAL HISTORY: Abdominal pain. COMPARISON: None. TECHNIQUE: Real-time scanning was performed with static images obtained. FINDINGS: Liver: Heterogeneous and echogenic. 17.3 cm. Main portal vein flow: Hepatopetal. Gallbladder: Multiple tiny mobile stones in the gallbladder. Wall thickness is normal at 1.3 mm. No focal tenderness is noted over the gallbladder. Biliary System: CBD measures 2 mm. No intrahepatic or extrahepatic ductal dilatation. Other: The visualized portions of the pancreas show no focal abnormality. Right kidney measures 9.9 cm and appears normal. IMPRESSION: 1. Multiple tiny mobile stones in the gallbladder without evidence of cholecystitis. 2. No biliary dilatation seen. 3. Fatty liver. RADIA
[2017-08-06 01:25] VITALS: BP 108/87
== END 2017-08-06 01:24 | disposition home or self-care (01) ==
LOC: ED 23:14
DX: K80.80 Other cholelithiasis without obstruction (principal); M54.5 Low back pain
CPT/HCPCS: 36415; 76705; 80053; 83690; 85025; 99283

== ENCOUNTER 2017-09-24 11:06 | Day surgery (SDC) | payer MEDICAID ==
--- NOTE | 2017-09-24 08:36 | ANESTHESIA ---
Pre-Anesthesia VS, & Labs - Diagnosis change in bowel habits - Procedure colonoscopy Height 5 ft 3 in Body Mass Index 32.5 - NPO >8 hours - Is Patient ?: No - Lab Results Lab results reviewed: Yes Home Medications and Allergies Home Medications: Ambulatory Orders Medication Instructions Recorded Confirmed Docusate Sodium 250Mg Capsule 250 mg PO DAILY 09/23/17 09/24/17 [Colace 250Mg Capsule] oxyCODONE ER [OxyCONTIN] 1 PRN 09/24/17 Allergies/Adverse Reactions: Allergies Allergy/AdvReac Type Severity Reaction Status Date / Time No Known Drug Allergies Allergy Verified 09/23/17 10:29 Anes History & Medical History - Anesthetic History Anesthesia Complications: reports: No previous complications - Medical History Cardiovascular: reports: None, Hypertension, Deep vein thrombosis, Atrial flutter, Atrial fibrillation Pulmonary: reports: None Gastrointestinal: reports: Other Urinary: reports: None Neuro: reports: None Musculoskeletal: reports: None Endocrine/Autoimmune: reports: None Blood Disorders: reports: None Skin: reports: None Smoking Status: Never smoker Exam General: Alert, Oriented x3 Mouth Openin Fingerbreadth Mallampati classification: II Thyromental Distance: 4-6 cm Respiratory: Lungs clear Cardiovascular: Regular rate Plan Anesthesia Type: General Consent for Procedure(s) Verified and Reviewed: Yes Code Status: Attempt Resuscitation ASA classification: 2-Mild systemic disease Is this case an emergency?: No
[~2017-09-24 11:06] MED LIST: BUPIVACAINE 0.5%-EPI 1:200000 PF 30 ML VIAL ONE; ceFAZolin 2 GM/50 ML 2 GM/50 ML BAG IV ONE
[2017-09-24] MEDS ORDERED: LACTATED RINGERS 1,000 ML IV ONE ×2 (11:20)
[2017-09-24 11:37] VITALS: BP 104/56
[2017-09-24 11:58] LABS: HCG UR QUAL NEGATIVE
== END 2017-09-24 11:07 | disposition home or self-care (01) ==
LOC: SDS 11:06
PROVIDERS: ATTEND Surgery
DX: R19.4 Change in bowel habit (principal); Z53.09 Procedure and treatment not carried out because of other contraindication
CPT/HCPCS: 81025

== ENCOUNTER 2017-10-08 09:59 | Day surgery (SDC) | payer MEDICAID ==
[2017-10-08] MEDS ORDERED: ceFAZolin 2 GM/50 ML 2 GM/50 ML BAG IV ONE (10:20)
[2017-10-08 10:26] LABS: HCG UR QUAL NEGATIVE
[2017-10-08] MEDS ORDERED: LACTATED RINGERS 1,000 ML IV ONE ×3 (10:38→14:00)
--- NOTE | 2017-10-08 10:53 | ANESTHESIA ---
Pre-Anesthesia VS, & Labs - Diagnosis biliary colic - Procedure Laparoscopic Cholecystectomy Vital Signs: Temp Pulse Resp BP Pulse Ox 36.4 C L 16 118/76 100 10/08/17 10:25 10/08/17 10:25 10/08/17 10:25 10/08/17 10:25 HR 86 Height 5 ft 3 in Weight (kg) 80.4 kg Body Mass Index 32.5 - NPO >8 hours - Is Patient ?: No Home Medications and Allergies Home Medications: Ambulatory Orders Medication Instructions Recorded Confirmed Docusate Sodium 250Mg Capsule 250 mg PO DAILY 09/23/17 10/08/17 [Colace 250Mg Capsule] oxyCODONE ER [OxyCONTIN] 5 mg PO PRN PRN 09/24/17 10/08/17 Ibuprofen 600 mg PO PRN PRN 10/08/17 10/08/17 Allergies/Adverse Reactions: Allergies Allergy/AdvReac Type Severity Reaction Status Date / Time No Known Drug Allergies Allergy Verified 10/08/17 10:32 Anes History & Medical History - Anesthetic History Anesthesia Complications: reports: No previous complications Family history of Anesthesia Complications: Denies - Medical History Cardiovascular: reports: None Pulmonary: reports: None Gastrointestinal: reports: None Urinary: reports: None Neuro: reports: None Musculoskeletal: reports: None Endocrine/Autoimmune: reports: None Blood Disorders: reports: None Skin: reports: None Smoking Status: Former smoker (only vapes now) Exam General: Alert Dental: WNL Mouth Openin Fingerbreadth Mallampati classification: II Thyromental Distance: greater than 6 cm Respiratory: Lungs clear Cardiovascular: Regular rate Mental/Cognitive Status: Alert/Oriented X3 Cognitive Status: Within normal limits Plan Anesthesia Type: General Consent for Procedure(s) Verified and Reviewed: Yes Code Status: Attempt Resuscitation ASA classification: 2-Mild systemic disease Is this case an emergency?: No
[2017-10-08] MEDS ORDERED: BUPIVACAINE 0.5% PF 30 ML VIAL ONE (11:46)
[2017-10-08] MEDS ORDERED: BUPIVACAINE 0.5% PF 30 ML VIAL INFIL ONE ×2 (12:19)
[2017-10-08] MEDS ORDERED: DEXAMETHASONE 4 MG/ML VIAL IVP ONE (12:20)
[2017-10-08] MEDS ORDERED: MIDAZOLAM 2 MG/2 ML VIAL IVP ONE (12:20)
[2017-10-08] MEDS ORDERED: KETOROLAC 30 MG/ML VIAL IVP ONE (12:20)
[2017-10-08] MEDS ORDERED: ONDANSETRON 4 MG/2 ML VIAL IVP ONE (12:20)
[2017-10-08] MEDS ORDERED: ACETAMINOPHEN 1,000 MG/100 ML 100 ML IV ONE (12:20)
[2017-10-08] MEDS ORDERED: PROPOFOL 200 MG/20 ML VIAL IVP ONE (12:20)
[2017-10-08] MEDS ORDERED: fentaNYL 100 MCG/2 ML VIAL IVP ONE (12:20)
[2017-10-08] MEDS ORDERED: LIDOCAINE-MPF 2% 5 ML VIAL IM ONE (12:20)
[2017-10-08] MEDS: fentaNYL 100 MCG/2 ML VIAL ONE ×2 (13:40→13:50)
[2017-10-08] MEDS ORDERED: oxyCOD/ACETAMIN 5 MG/325 MG TABLET PO ONE (14:26)
[2017-10-08 15:16] VITALS: BP 105/45
--- NOTE | 2017-10-10 15:26 | OPERATIVE REPORT ---
Operative Report - General Planned Procedure: Laparoscopic cholecystectomy Pre-Op Diagnosis: Chronic cholecystitis due to cholelithiasis (symptomatic cholelithiasis) Procedure Performed: Laparoscopic cholecystectomy Post Op Diagnosis: Chronic cholecystitis due to cholelithiasis (symptomatic cholelithiasis) - Procedure Note Primary Surgeon: North Galdamez MD Anesthesia Provider: Alexa Baldwin CRNA Anesthesia Technique: General ET tube, Local (30 mL 1/2% marcaine) IV Fluids (mL): 800 Estimated Blood Loss (mL): 5 Complications: None. - Other Other Information/Narrative: OPERATIVE DESCRIPTION/REPORT: After verbal and written informed consent was obtained detailing the risks of infection, bleeding with all of its risks including transfusion, common bile duct injury, and the patient was brought to the operative suite and placed in the supine position on the operating room table. Monitoring devices were applied along with TEDs and pneumatic compressive stockings. Care was taken to avoid pressure points. Prophylactic antibiotics were given. An adequate level of general endotracheal anesthesia was established by Alexa Baldwin CRNA. The abdomen was then prepped with ChloraPrep and draped in a sterile fashion. A "time in" then confirmed that the patient was identified with 3 identifiers (name, date and medical record number), the history and physical was in the chart, the signed consent confirming the procedure was in the chart, the patient was in the correct position, the aforementioned prophylactic measures were in place or given, we had the correct personnel and equipment to complete the procedure and that anesthesia, surgery and nursing were given an opportunity to express any concerns. The initial incision was at the umbilicus and dissection to the linea alba was completed using blunt dissection. The linea alba was grasped with a Kong and incised. In a similar manner the peritoneum was grasped and incised using Metzenbaum scissors. In this location, a 12 mm blunt tipped, balloon tipped port was placed and the balloon was inflated to keep the port in position. The abdominal cavity was insufflated with carbon dioxide to steady-state pressure of 15 mmHg. Three additional 5 mm ports were placed in standard location for laparoscopic cholecystectomy (subxiphoid and 2 right subcostal) under direct vision of the 30 degree laparoscope and without incident. The patient was then placed in reverse Trendelenburg position and was rotated slightly to their left. The gallbladder fundus was grasped with an atraumatic grasper. Multiple adhesions had to be taken down by blunt and sharp dissection along with electrocautery. Eventually, we identified the infundibulum, and this was then grasped and retracted inferior and laterally. Dissection was then begun in the angle of Calot. The cystic duct and (slightly medially and posteriorly) cystic artery were clearly identified. The critical view was obtained. Two clips proximally and one clip distally were used to control both the cystic duct and cystic artery. The clips were carefully placed to avoid occluding the juncture with the common bile duct. Both the cystic duct and then the cystic artery were then transected with laparoscopic che. The gallbladder was then removed from its fossa in a retrograde fashion using electrocautery. With the 30 degree 5 mm scope in the subxiphoid position, the gallbladder was placed in an EndoCatch bag to be extracted through the 12 mm port site. I irrigated the right upper quadrant with a liter of warm sterile saline, and the area was aspirated dry. I inspected the gallbladder fossa and there was no bleeding or bile leak. Clips on the cystic duct and cystic artery appeared to be secure. I briefly visually explored the abdomen. There was no other evidence of overt pathology. I injected the port sites at the peritoneal, fascial, and skin levels under direct vision with 0.5% Marcaine. All ports and the EndoCatch containing the gallbladder were removed. Following gallbladder removal, the remaining carbon dioxide was expelled from the abdomen. The fascia at the umbilicus was reapproximated using 2 [id number] 0 Vicryl sutures. The skin at each port site was approximated using a subcuticular 4-0 Monocryl. The surgical count of instruments, needles and sponges was reported as correct twice. Mastisol, Steristrips and sterile surgical dressings were applied. The patient was then awakened from anesthesia, extubated, and having tolerated the procedure well, was transported to the recovery room. No complications were encountered. A "time out" confirmed the operation performed , the fluids given, the estimated blood loss and anesthesia, surgery and nursing were given an opportunity to express any concerns. Dragon disclaimer: This document was created in part using voice recognition technology. Because of the inherent limitations of the system ([employer] Dict[employer] user manual states that the licensee understands that speech recognition is a statistical process and that recognition errors are inherent in the process), occasional same sounding word substitutions and grammatical errors do occur and persist despite proofreading. Please read this document for context.
== END 2017-10-08 10:00 | disposition home or self-care (01) ==
LOC: SDS 09:59
PROVIDERS: ATTEND Surgery
PROC: 0FT44ZZ Resection of Gallbladder, Percutaneous Endoscopic Approach (ICD-10-PCS; principal; 2017-10-08 11:15)
DX: K80.10 Calculus of gallbladder with chronic cholecystitis without obstruction (principal); K82.8 Other specified diseases of gallbladder; F17.290 Nicotine dependence, other tobacco product, uncomplicated
CPT/HCPCS: 47562; 81025; A9270; J0131; J0690; J7120

== ENCOUNTER 2017-11-06 08:32 | Emergency (ER) | payer MEDICAID ==
[2017-11-06] MEDS ORDERED: FAMOTIDINE 20 MG TABLET PO STA (10:06)
[2017-11-06] MEDS ORDERED: LORazepam 0.5 MG TABLET PO STA (10:06)
--- NOTE | 2017-11-06 10:13 | ED Physician Documentation ---
History of Present Illness - Stated complaint Stated Complaint: WEAKNESS/ANXIETY - Chief complaint Chief Complaint: General - Additonal information Additional information: hx from pt 22 f doubts preg friend recently and she has been very anxious and depressed and tearful denies SI also upper abd pain rad to R flank no NV diarrhea is onging s/p alisha no pelvic pain bleeding or dc no dysuria or hemturia s/p alisha Review of Systems Constitutional: denies: Fever Cardiac: denies: Chest pain / pressure Respiratory: denies: Dyspnea GI: reports: Abdominal Pain. denies: Nausea, Vomiting, Diarrhea : denies: Dysuria, Hematuria, Discharge, Vaginal bleeding, Now EGA Endocrine: denies: Easy bruising / bleeding Immunocompromised: denies: Immunocompromised PD PAST MEDICAL HISTORY - Past Medical History Past Medical History: Yes Cardiovascular: None Respiratory: None Neuro: None Endocrine/Autoimmune: None GI: None INSURANCE ADJUSTOR: None : None HEENT: None Psych: None, Anxiety Musculoskeletal: None Derm: None - Past Surgical History Past Surgical History: No - Present Medications Home Medications: Ambulatory Orders Medication Instructions Recorded Confirmed raNITIdine [Zantac] 150 mg PO BID #60 tablet 11/06/17 - Allergies Allergies/Adverse Reactions: Allergies Allergy/AdvReac Type Severity Reaction Status Date / Time No Known Drug Allergies Allergy Verified 11/06/17 08:49 - Social History Does the pt smoke?: No Smoking Status: Never smoker Does the pt drink ETOH?: No Does the pt have substance abuse?: No - Immunizations Immunizations are current?: Yes - POLST Patient has POLST: No PD ED PE NORMAL - Vitals Vital signs reviewed: Yes - Cardiac Cardiac: RRR - Respiratory Respiratory: No respiratory distress - Abdomen Abdomen: Soft, Other (mod TTP upper abd s rebound guarding) - Neuro Neuro: Other (tearful) Results - Vitals Vitals: Vital Signs - 24 hr 11/06/17 08:44 Temperature 36.6 C Heart Rate 80 Respiratory 18 Rate Blood Pressure 122/69 O2 Saturation 100 Oxygen O2 Source Room air - Labs Labs: Laboratory Tests 11/06/17 10:15 Urine Color YELLOW Urine Clarity CLEAR Urine pH 6.5 Ur Specific Lejunior 1.010 Urine Protein NEGATIVE Urine Glucose (UA) NEGATIVE Urine Ketones NEGATIVE Urine Occult Blood NEGATIVE Urine Nitrite NEGATIVE Urine Bilirubin NEGATIVE Urine Urobilinogen 0.2 (NORMAL) Ur Leukocyte Esterase NEGATIVE Ur Microscopic Review NOT INDICATED Urine Culture Comments NOT INDICATED Urine HCG, Qual NEGATIVE PD MEDICAL DECISION MAKING - ED course ED course: seen by SW and offered resources - Sepsis Event Vital Signs: Vital Signs - 24 hr 11/06/17 08:44 Temperature 36.6 C Heart Rate 80 Respiratory 18 Rate Blood Pressure 122/69 O2 Saturation 100 Oxygen O2 Source Room air Departure - Departure Disposition: 01 Home, Self Care Clinical Impression: Grief reaction Gastritis Qualifiers: Gastritis type: unspecified gastritis Chronicity: acute Gastritis bleeding: without bleeding Qualified Code(s): K29.00 - Acute gastritis without bleeding Condition: Good Instructions: ED Gastritis, ED Grief Reaction Follow-Up: Dianna Rose ARNP [Primary Care Provider] - Prescriptions: raNITIdine [Zantac] 150 mg PO BID #60 tablet Comments: Please follow up with the resources provided to you by social work
[2017-11-06 10:46] LABS: BILIRUBIN,URINE NEGATIVE (NEGATIVE); GLUCOSE, URINE (UA) NEGATIVE (NEGATIVE); KETONES,URINE (UA) NEGATIVE (NEGATIVE); LEUKOCYTE ESTERASE, URINE NEGATIVE (NEGATIVE); NITRITE,URINE NEGATIVE (NEGATIVE); OCCULT BLOOD,URINE NEGATIVE (NEGATIVE); PH,URINE 6.5 PH (5.0-7.5); PROTEIN,URINE NEGATIVE (NEGATIVE); UROBILINOGEN,URINE 0.2 (NORMAL) E.U./dL (NORMAL)
[2017-11-06 10:47] LABS: CLARITY,URINE CLEAR (CLEAR)
[2017-11-06 10:49] LABS: HCG UR QUAL NEGATIVE
[2017-11-06 12:21] VITALS: BP 95/59
== END 2017-11-06 12:21 | disposition home or self-care (01) ==
LOC: ED 08:32
DX: F43.20 Adjustment disorder, unspecified (principal); K29.00 Acute gastritis without bleeding
CPT/HCPCS: 81003; 81025; 99282; 99283; A9270; 81001; 87086

== ENCOUNTER 2017-12-03 12:14 | Emergency (ER) | payer MEDICAID ==
[2017-12-03] MEDS ORDERED: KETOROLAC 15 MG/ML VIAL IVP STA (12:38)
[2017-12-03] MEDS ORDERED: METOCLOPRAMIDE 10 MG/2 ML VIAL IVP STA (12:38)
[2017-12-03] MEDS ORDERED: SODIUM CHLORIDE 0.9% 1,000 ML IV ONE (12:38)
--- NOTE | 2017-12-03 12:40 | ED Physician Documentation ---
PD HPI NVD - Stated complaint Stated Complaint: V/D FEVER - Chief complaint Chief Complaint: Abd Pain - History obtained from History obtained from: Patient, Family - History of Present Illness Timing - onset: Yesterday (Developed a gradual onset headache yesterday with vomiting and diarrhea although the diarrhea is not thought atypical for her because of cholecystectomy in the past. She thought she might have a low-grade fever but nothing measured. She also has a runny nose. No sick contacts at home. She did recently travel to [place] and got back about 3 days ago. Denies diffuse myalgias.) Review of Systems Constitutional: reports: Chills, Fatigue. denies: Fever, Myalgias Ears: denies: Ear pain, Drainage/discharge Nose: reports: Rhinorrhea / runny nose Throat: denies: Sore throat Respiratory: denies: Cough GI: reports: Nausea, Vomiting, Diarrhea. 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 : None HEENT: None Psych: None, Anxiety Musculoskeletal: None Derm: None - Past Surgical History Past Surgical History: Yes General: Cholecystectomy - Present Medications Home Medications: Ambulatory Orders Medication Instructions Recorded Confirmed raNITIdine [Zantac] 150 mg PO BID #60 tablet 11/06/17 12/03/17 Docusate Sodium 250Mg Capsule 600 mg PO Q6H PRN 12/03/17 12/03/17 [Colace 250Mg Capsule] Ibuprofen [Motrin] 800 mg PO Q8H PRN #30 tablet 12/03/17 Metoclopramide [Reglan] 10 mg PO Q6H PRN #15 tablet 12/03/17 - Allergies Allergies/Adverse Reactions: Allergies Allergy/AdvReac Type Severity Reaction Status Date / Time No Known Drug Allergies Allergy Verified 12/03/17 12:23 - Social History Does the pt smoke?: No Smoking Status: Never smoker Does the pt drink ETOH?: No Does the pt have substance abuse?: No - Immunizations Immunizations are current?: Yes - POLST Patient has POLST: No PD ED PE NORMAL - Vitals Vital signs reviewed: Yes - General General: Alert and oriented X 3, No acute distress - HEENT HEENT: PERRL, Ears normal, Moist mucous membranes, Pharynx benign - Neck Neck: Supple, no meningeal sign, No bony TTP - Cardiac Cardiac: RRR, No murmur - Respiratory Respiratory: No respiratory distress, Clear bilaterally - Abdomen Abdomen: Normal bowel sounds, Soft, Non tender - Back Back: No CVA TTP, No spinal TTP - Derm Derm: Normal color, Warm and dry - Extremities Extremities: No edema, No calf tenderness / cord - Neuro Neuro: Alert and oriented X 3, Normal speech Results - Vitals Vitals: Vital Signs - 24 hr 12/03/17 12:18 Temperature 37.0 C Heart Rate 76 Respiratory 15 Rate Blood Pressure 101/64 O2 Saturation 100 Oxygen O2 Source Room air - Labs Labs: Laboratory Tests 12/03/17 12/03/17 12/03/17 12:30 12:50 12:50 WBC 7.5 RBC 4.56 Hgb 12.7 Hct 37.3 MCV 81.9 MCH 27.8 MCHC 33.9 RDW 14.4 Plt Count 335 MPV 7.4 L Neut # (Auto) 5.1 Lymph # (Auto) 1.7 [place] # (Auto) 0.5 Eos # (Auto) 0.1 Baso # (Auto) 0.0 Absolute Nucleated RBC 0.00 Nucleated RBC % 0.0 Sodium 136 Potassium 3.5 Chloride 103 Carbon Dioxide 24 Anion Gap 9.0 BUN 12 Creatinine 0.7 Estimated GFR (MDRD) 104 Glucose 96 Calcium 9.4 Total Bilirubin 1.2 H AST 219 H ALT 130 H Alkaline Phosphatase 89 Total Protein 8.3 H Albumin 4.8 Globulin 3.5 Albumin/Globulin Ratio 1.4 Lipase 24 Urine Color YELLOW Urine Clarity CLEAR Urine pH 8.0 H Ur Specific [place] 1.015 Urine Protein NEGATIVE Urine Glucose (UA) NEGATIVE Urine Ketones NEGATIVE Urine Occult Blood NEGATIVE Urine Nitrite NEGATIVE Urine Bilirubin NEGATIVE Urine Urobilinogen 0.2 (NORMAL) Ur Leukocyte Esterase NEGATIVE Ur Microscopic Review NOT INDICATED Urine Culture Comments NOT INDICATED Urine HCG, Qual NEGATIVE Acetaminophen Ethyl Alcohol Infectious [place] Assay Influenza A (Rapid) Influenza B (Rapid) 12/03/17 12/03/17 12/03/17 12:50 13:36 13:36 WBC RBC Hgb Hct MCV MCH MCHC RDW Plt Count MPV Neut # (Auto) Lymph # (Auto) [place] # (Auto) Eos # (Auto) Baso # (Auto) Absolute Nucleated RBC Nucleated RBC % Sodium Potassium Chloride Carbon Dioxide Anion Gap BUN Creatinine Estimated GFR (MDRD) Glucose Calcium Total Bilirubin AST ALT Alkaline Phosphatase Total Protein Albumin Globulin Albumin/Globulin Ratio Lipase Urine Color Urine Clarity Urine pH Ur Specific [place] Urine Protein Urine Glucose (UA) Urine Ketones Urine Occult Blood Urine Nitrite Urine Bilirubin Urine Urobilinogen Ur Leukocyte Esterase Ur Microscopic Review Urine Culture Comments Urine HCG, Qual Acetaminophen < 10 L Ethyl Alcohol < 5.0 Infectious [place] Assay NEGATIVE Influenza A (Rapid) Negative Influenza B (Rapid) Negative PD MEDICAL DECISION MAKING - ED course ED course: 22-year-old with what seems to be a viral flulike illness. Doubt flu primarily with lack of fever and myalgias. There is no meningismus. Feeling better after meds and fluids. Workup is negative with the exception of modest elevation of liver enzymes. We discussed Tylenol which she takes occasionally but not much, alcohol, she has a couple of drinks a week. Also mono which is checked for. Probably due to some other viral process. Departure - Departure Disposition: 01 Home, Self Care Clinical Impression: Viral syndrome, Elevated liver enzymes Condition: Good Record reviewed to determine appropriate education?: Yes Instructions: ED Viral Syndrome Prescriptions: Ibuprofen [Motrin] 800 mg PO Q8H PRN #30 tablet PRN Reason: PAIN &/OR FEVER Metoclopramide [Reglan] 10 mg PO Q6H PRN #15 tablet PRN Reason: Nausea / Vomiting Comments: As discussed your liver enzymes are mildly elevated, likely from the same process that is causing her current issue which is viral. Follow-up with your primary care physician in about a week for recheck, consider repeat liver enzyme testing. Return for new or worsening symptoms. Forms: Activity restrictions
[2017-12-03 12:44] LABS: BILIRUBIN,URINE NEGATIVE (NEGATIVE); GLUCOSE, URINE (UA) NEGATIVE (NEGATIVE); KETONES,URINE (UA) NEGATIVE (NEGATIVE); LEUKOCYTE ESTERASE, URINE NEGATIVE (NEGATIVE); NITRITE,URINE NEGATIVE (NEGATIVE); OCCULT BLOOD,URINE NEGATIVE (NEGATIVE); PROTEIN,URINE NEGATIVE (NEGATIVE); UROBILINOGEN,URINE 0.2 (NORMAL) E.U./dL (NORMAL)
[2017-12-03 13:02] LABS: BASOPHILS % (AUTO) 0.6 %; EOSINOPHILS # (AUTO) 0.1 10^3/uL (0.0-0.7); EOSINOPHILS % (AUTO) 1.5 %; HGB - HEMOGLOBIN 12.7 g/dL (12.0-16.0); LYMPHOCYTES # (AUTO) 1.7 10^3/uL (1.5-3.5); LYMPHOCYTES % (AUTO) 22.9 %; MEAN CORPUSCULAR HEMOGLOBIN 27.8 pg (27.0-31.0); MEAN CORPUSCULAR HGB CONC 33.9 g/dL (32.0-36.0); MEAN CORPUSCULAR VOLUME 81.9 fL (81.0-99.0); MEAN PLATELET VOLUME 7.4 fL (7.9-10.8); MONOCYTES # (AUTO) 0.5 10^3/uL (0.0-1.0); MONOCYTES % (AUTO) 7.1 %; NEUTROPHILS # (AUTO) 5.1 10^3/uL (1.5-6.6); NEUTROPHILS % (AUTO) 67.9 %; PLT - PLATELET COUNT 335 10^3/uL (130-450); RED BLOOD COUNT 4.56 10^6/uL (4.20-5.40); RED CELL DISTRIBUTION WIDTH 14.4 % (12.0-15.0); WHITE BLOOD COUNT 7.5 x10^3/uL (4.8-10.8)
[2017-12-03 13:06] LABS: CLARITY,URINE CLEAR (CLEAR); HCG UR QUAL NEGATIVE
[2017-12-03 13:15] LABS: ALBUMIN 4.8 g/dL (3.2-5.5); ALBUMIN/GLOBULIN RATIO 1.4 (1.0-2.2); BILIRUBIN,TOTAL 1.2 mg/dL (0.2-1.0); CALCIUM 9.4 mg/dL (8.5-10.3); CREATININE 0.7 mg/dL (0.4-1.0); TOTAL PROTEIN 8.3 g/dL (6.7-8.2)
[2017-12-03 14:04] LABS: ACETAMINOPHEN < 10 ug/mL (10-30)
[2017-12-03 14:21] VITALS: BP 111/60
== END 2017-12-03 14:20 | disposition home or self-care (01) ==
LOC: ED 12:14
DX: B34.9 Viral infection, unspecified (principal); R74.8 Abnormal levels of other serum enzymes
CPT/HCPCS: 36415; 80053; 80307; 80320; 81003; 81025; 83690; 85025; 86308; 87275; 87276; 96361; 96374; 99283; J2765; 81001; 87086

== ENCOUNTER 2018-04-01 20:28 | Emergency (ER) | payer OTHER, MEDICAID ==
--- NOTE | 2018-04-01 22:33 | ED Physician Documentation ---
History of Present Illness - Stated complaint Stated Complaint: OIL IN EYE - Chief complaint Chief Complaint: Burn - History obtained from History obtained from: Patient - History of Present Illness Timing: Today (At work a few hours ago she was working with the [employer], they were off but they will was still hot and some of it splashed near her eyes. She briefly had visual deficit but it is gone. 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 : None HEENT: None Psych: None, Anxiety Musculoskeletal: None Derm: None - Past Surgical History Past Surgical History: Yes General: Cholecystectomy - Present Medications Home Medications: Ambulatory Orders Medication Instructions Recorded Confirmed raNITIdine [Zantac] 150 mg PO BID #60 tablet 11/06/17 12/03/17 Docusate Sodium 250Mg Capsule 600 mg PO Q6H PRN 12/03/17 12/03/17 [Colace 250Mg Capsule] Ibuprofen [Motrin] 800 mg PO Q8H PRN #30 tablet 12/03/17 Metoclopramide [Reglan] 10 mg PO Q6H PRN #15 tablet 12/03/17 - Allergies Allergies/Adverse Reactions: Allergies Allergy/AdvReac Type Severity Reaction Status Date / Time No Known Drug Allergies Allergy Verified 12/03/17 12:23 - Social History Does the pt smoke?: No Smoking Status: Never smoker Does the pt drink ETOH?: No Does the pt have substance abuse?: No - Immunizations Immunizations are current?: Yes - POLST Patient has POLST: No PD ED PE NORMAL - Vitals Vital signs reviewed: Yes - General General: Alert and oriented X 3, No acute distress - HEENT HEENT: PERRL, EOMI, Other (Both on gross exam as well as fluorescein examination and there are no visible coronel of either eye or the face.) - Neck Neck: Supple, no meningeal sign, No bony TTP - Neuro Neuro: Alert and oriented X 3, Normal speech Results - Vitals Vitals: Vital Signs - 24 hr 04/01/18 20:34 Temperature 37.3 C Heart Rate 76 Respiratory 17 Rate Blood Pressure 132/77 H O2 Saturation 100 Oxygen O2 Source Room air Departure - Departure Disposition: Home, Self Care Clinical Impression: Chemical exposure of eye Condition: Good Record reviewed to determine appropriate education?: Yes Instructions: ED Chemical Conjunctivitis Comments: No specific followup is needed unless you have persistent symptoms. Your blood pressure was elevated today on check into the emergency department. This does not mean that you have hypertension, it is a common phenomenon to come to the emergency department and have elevated blood pressure. I recommend that you see your primary care physician within the week to have it rechecked when you are feeling better.
[2018-04-01 22:38] VITALS: BP 112/70
== END 2018-04-01 22:37 | disposition home or self-care (01) ==
LOC: ED 20:28
DX: Z77.098 Contact with and (suspected) exposure to other hazardous, chiefly nonmedicinal, chemicals (principal); X58.XXXA Exposure to other specified factors, initial encounter; Y93.G1 Activity, food preparation and clean up; Y92.89 Other specified places as the place of occurrence of the external cause; Y99.0 Civilian activity done for income or pay
CPT/HCPCS: 99282

== ENCOUNTER 2018-04-11 14:28 | Emergency (ER) | payer MEDICAID, OTHER ==
[2018-04-11 15:04] LABS: BILIRUBIN,URINE NEGATIVE (NEGATIVE); GLUCOSE, URINE (UA) NEGATIVE (NEGATIVE); KETONES,URINE (UA) NEGATIVE (NEGATIVE); LEUKOCYTE ESTERASE, URINE NEGATIVE (NEGATIVE); NITRITE,URINE NEGATIVE (NEGATIVE); OCCULT BLOOD,URINE NEGATIVE (NEGATIVE); PH,URINE 5.5 PH (5.0-7.5); PROTEIN,URINE NEGATIVE (NEGATIVE); UROBILINOGEN,URINE 0.2 (NORMAL) E.U./dL (NORMAL)
[2018-04-11 15:06] LABS: CLARITY,URINE CLEAR (CLEAR); HCG UR QUAL NEGATIVE
[2018-04-11 15:21] LABS: BASOPHILS # (AUTO) 0.1 10^3/uL (0.0-0.1); BASOPHILS % (AUTO) 0.8 %; EOSINOPHILS # (AUTO) 0.1 10^3/uL (0.0-0.7); EOSINOPHILS % (AUTO) 1.8 %; LYMPHOCYTES # (AUTO) 2.4 10^3/uL (1.5-3.5); LYMPHOCYTES % (AUTO) 36.2 %; MEAN CORPUSCULAR HEMOGLOBIN 27.8 pg (27.0-31.0); MEAN CORPUSCULAR HGB CONC 33.7 g/dL (32.0-36.0); MEAN CORPUSCULAR VOLUME 82.6 fL (81.0-99.0); MEAN PLATELET VOLUME 7.5 fL (7.9-10.8); MONOCYTES # (AUTO) 0.4 10^3/uL (0.0-1.0); MONOCYTES % (AUTO) 5.7 %; NEUTROPHILS # (AUTO) 3.7 10^3/uL (1.5-6.6); NEUTROPHILS % (AUTO) 55.5 %; PLT - PLATELET COUNT 325 10^3/uL (130-450); RED BLOOD COUNT 4.32 10^6/uL (4.20-5.40); RED CELL DISTRIBUTION WIDTH 14.2 % (12.0-15.0); WHITE BLOOD COUNT 6.7 x10^3/uL (4.8-10.8)
[2018-04-11 15:32] LABS: ALBUMIN 4.7 g/dL (3.2-5.5); ALBUMIN/GLOBULIN RATIO 1.4 (1.0-2.2); BILIRUBIN,TOTAL 0.6 mg/dL (0.2-1.0); CALCIUM 9.5 mg/dL (8.5-10.3); CREATININE 0.6 mg/dL (0.4-1.0)
--- NOTE | 2018-04-11 18:10 | ED Physician Documentation ---
PD HPI FEMALE - Stated complaint Stated Complaint: FEM - History obtained from History obtained from: Patient - History of Present Illness Timing - onset: How many weeks ago (2) Timing - details: Still present Associated symptoms: Vaginal discharge, Dysuria, Urinary frequency Contributing factors: Sexually active - Additional information Additional information: The patient is a 22-year-old female who complains of frequency of urination over the past 2 weeks. She also reports dysuria at the end of urination, and pain during intercourse. She denies abdominal pain, fever, nausea or vomiting. The last time she had a urinary tract infection was about 9 months ago. 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 HEENT: None Psych: None, Anxiety Musculoskeletal: None Derm: None - Past Surgical History Past Surgical History: Yes General: Cholecystectomy - Present Medications Home Medications: Ambulatory Orders Medication Instructions Recorded Confirmed raNITIdine [Zantac] 150 mg PO BID #60 tablet 11/06/17 12/03/17 Docusate Sodium 250Mg Capsule 600 mg PO Q6H PRN 12/03/17 12/03/17 [Colace 250Mg Capsule] Ibuprofen [Motrin] 800 mg PO Q8H PRN #30 tablet 12/03/17 Metoclopramide [Reglan] 10 mg PO Q6H PRN #15 tablet 12/03/17 metroNIDAZOLE [Metronidazole] 500 mg PO BID #14 tablet 04/11/18 - Allergies Allergies/Adverse Reactions: Allergies Allergy/AdvReac Type Severity Reaction Status Date / Time No Known Drug Allergies Allergy Verified 04/11/18 14:34 - Social History Does the pt smoke?: No Smoking Status: Never smoker Does the pt drink ETOH?: No Does the pt have substance abuse?: No - Immunizations Immunizations are current?: Yes - POLST Patient has POLST: No PD ED PE NORMAL - Vitals Vital signs reviewed: Yes (normal) - General General: Alert and oriented X 3, Well developed/nourished - HEENT HEENT: Atraumatic, Pharynx benign - Neck Neck: No adenopathy - Cardiac Cardiac: RRR - Respiratory Respiratory: No respiratory distress, Clear bilaterally - Abdomen Abdomen: Soft, Non tender - Female Female : Astrobiologist present - Back Back: No CVA TTP - Derm Derm: No rash - Extremities Extremities: No edema, No calf tenderness / cord - Neuro Neuro: Alert and oriented X 3, No motor deficit, Normal speech PD ED PE EXPANDED - Female Female : Normal external, Vaginal Discharge, Cultures sent, Astrobiologist present, Other (Wet mount sent.). No: Adnexal Tenderness Results - Vitals Vitals: Oxygen O2 Source Room air - Labs Labs: Microbiology 04/11/18 17:30 Wet Prep - Final Cervix Laboratory Tests 04/11/18 04/11/18 04/11/18 14:50 15:12 15:12 WBC 6.7 RBC 4.32 Hgb 12.0 Hct 35.7 L MCV 82.6 MCH 27.8 MCHC 33.7 RDW 14.2 Plt Count 325 MPV 7.5 L Neut # (Auto) 3.7 Lymph # (Auto) 2.4 [place] # (Auto) 0.4 Eos # (Auto) 0.1 Baso # (Auto) 0.1 Absolute Nucleated RBC 0.00 Nucleated RBC % 0.0 Sodium 140 Potassium 4.4 Chloride 105 Carbon Dioxide 26 Anion Gap 9.0 BUN 15 Creatinine 0.6 Estimated GFR (MDRD) 124 Glucose 104 H Calcium 9.5 Total Bilirubin 0.6 AST 16 ALT 13 Alkaline Phosphatase 48 Total Protein 8.0 Albumin 4.7 Globulin 3.3 Albumin/Globulin Ratio 1.4 Lipase 27 Urine Color YELLOW Urine Clarity CLEAR Urine pH 5.5 Ur Specific [place] 1.020 Urine Protein NEGATIVE Urine Glucose (UA) NEGATIVE Urine Ketones NEGATIVE Urine Occult Blood NEGATIVE Urine Nitrite NEGATIVE Urine Bilirubin NEGATIVE Urine Urobilinogen 0.2 (NORMAL) Ur Leukocyte Esterase NEGATIVE Ur Microscopic Review NOT INDICATED Urine Culture Comments NOT INDICATED Urine HCG, Qual NEGATIVE C.trachomatis RNA (TMA) Chlamydia/GC Comment N.gonorrhoeae RNA (TMA) 04/11/18 17:30 WBC RBC Hgb Hct MCV MCH MCHC RDW Plt Count MPV Neut # (Auto) Lymph # (Auto) [place] # (Auto) Eos # (Auto) Baso # (Auto) Absolute Nucleated RBC Nucleated RBC % Sodium Potassium Chloride Carbon Dioxide Anion Gap BUN Creatinine Estimated GFR (MDRD) Glucose Calcium Total Bilirubin AST ALT Alkaline Phosphatase Total Protein Albumin Globulin Albumin/Globulin Ratio Lipase Urine Color Urine Clarity Urine pH Ur Specific [place] Urine Protein Urine Glucose (UA) Urine Ketones Urine Occult Blood Urine Nitrite Urine Bilirubin Urine Urobilinogen Ur Leukocyte Esterase Ur Microscopic Review Urine Culture Comments Urine HCG, Qual C.trachomatis RNA (TMA) NOT DETECTED Chlamydia/GC Comment SEE NOTE N.gonorrhoeae RNA (TMA) NOT DETECTED PD MEDICAL DECISION MAKING - ED course Complexity details: reviewed results, re-evaluated patient, considered differential, d/w patient, d/w family ED course: The patient's presentation is significant for bacterial vaginosis, which is confirmed with wet mount is positive for clue cells. Her urinalysis is negative for UTI, and test is negative. GC and chlamydia cultures are pending. Treatment in the emergency department included administration of metronidazole 500 mg orally. She is being discharged with a prescription for metronidazole. 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 Departure - Departure Disposition: 01 Home, Self Care Clinical Impression: Bacterial vaginosis Condition: Stable Instructions: ED Vaginosis Bacterial Follow-Up: Radha Crowder ARNP [Credentialed Staff Provider] - Prescriptions: metroNIDAZOLE [Metronidazole] 500 mg PO BID #14 tablet Comments: Take metronidazole twice daily as prescribed. Follow-up with your primary physician within 2 weeks. Call to schedule appointment. Return to the emergency department if you develop increasing vaginal pain, or otherwise worsening symptoms. Discharge Date/Time: 04/11/18 18:22
[2018-04-11] MEDS ORDERED: metroNIDAZOLE 250 MG TABLET PO STA (18:14)
[2018-04-11 18:18] VITALS: BP 105/62
== END 2018-04-11 18:22 | disposition home or self-care (01) ==
LOC: ED 14:28
DX: N76.0 Acute vaginitis (principal); B96.89 Other specified bacterial agents as the cause of diseases classified elsewhere
CPT/HCPCS: 36415; 80053; 81003; 81025; 83690; 85025; 87210; 87491; 87591; 99283; A9270; 81001; 87086

== ENCOUNTER 2019-07-08 17:41 | Outpatient (CLI) | payer MEDICAID ==
[2019-07-08 17:57] LABS: BILIRUBIN,URINE NEGATIVE (NEGATIVE); GLUCOSE, URINE (UA) NEGATIVE (NEGATIVE); KETONES,URINE (UA) NEGATIVE (NEGATIVE); LEUKOCYTE ESTERASE, URINE NEGATIVE (NEGATIVE); NITRITE,URINE NEGATIVE (NEGATIVE); OCCULT BLOOD,URINE NEGATIVE (NEGATIVE); PROTEIN,URINE NEGATIVE (NEGATIVE); UROBILINOGEN,URINE 0.2 (NORMAL) E.U./dL (NORMAL)
[2019-07-08 18:08] LABS: CLARITY,URINE CLEAR (CLEAR)
== END 2019-07-08 17:42 | disposition home or self-care (01) ==
LOC: LAB 17:41
PROVIDERS: ATTEND Physician Assistant Medical
DX: R30.0 Dysuria (principal)
CPT/HCPCS: 81001; 81003; 87086

== ENCOUNTER 2020-01-03 12:47 | Outpatient (CLI) | payer MEDICAID | END 2020-01-03 23:59 | disposition home or self-care (01) | LOC: LAB.R 12:47 | PROVIDERS: ATTEND Physician Assistant | DX: J06.9 Acute upper respiratory infection, unspecified (principal); Z20.828 Contact with and (suspected) exposure to other viral communicable diseases ==

== ENCOUNTER 2020-11-18 07:00 | Outpatient (CLI) | payer MEDICAID ==
[2020-11-18 18:57] LABS: BILIRUBIN,URINE NEGATIVE (NEGATIVE); GLUCOSE, URINE (UA) NEGATIVE (NEGATIVE); KETONES,URINE (UA) NEGATIVE (NEGATIVE); LEUKOCYTE ESTERASE, URINE NEGATIVE (NEGATIVE); NITRITE,URINE NEGATIVE (NEGATIVE); OCCULT BLOOD,URINE NEGATIVE (NEGATIVE); PROTEIN,URINE NEGATIVE (NEGATIVE); UROBILINOGEN,URINE 0.2 (NORMAL) E.U./dL (NORMAL)
[2020-11-18 19:42] LABS: BACTERIA,URINE None Seen /HPF (None Seen); CLARITY,URINE CLEAR (CLEAR); RBC,URINE None Seen /HPF (0-5); SQUAMOUS EPITHELIAL CELL,UR FEW Squamous (<= Few); WBC,URINE 0-3 /HPF (0-5)
== END 2020-11-18 23:59 | disposition home or self-care (01) ==
LOC: LAB 07:00
PROVIDERS: ATTEND Obstetrics & Gynecology
DX: R30.0 Dysuria (principal)
CPT/HCPCS: 81001; 87086

== ENCOUNTER 2021-01-21 10:53 | Outpatient (CLI) | payer MEDICAID ==
[2021-01-21 14:00] LABS: HCT - HEMATOCRIT 37.8 % (37.0-47.0); HGB - HEMOGLOBIN 12.4 g/dL (12.0-16.0); MEAN CORPUSCULAR HEMOGLOBIN 26.4 pg (27.0-31.0); MEAN CORPUSCULAR HGB CONC 32.8 g/dL (32.0-36.0); MEAN CORPUSCULAR VOLUME 80.6 fL (81.0-99.0); MEAN PLATELET VOLUME 10.7 fL (7.9-10.8); RED BLOOD COUNT 4.69 10^6/uL (4.20-5.40); RED CELL DISTRIBUTION WIDTH 13.5 % (12.0-15.0); WHITE BLOOD COUNT 5.9 x10^3/uL (4.8-10.8)
[2021-01-21 14:26] LABS: CRP - C-REACTIVE PROTEIN < 1.0 mg/dL (0-1.0); URIC ACID 4.9 mg/dL (2.6-7.2)
[2021-01-21 14:52] LABS: RHEUMATOID FACTOR NEGATIVE (Negative)
[2021-01-24 08:05] LABS: DNA (DS) ANTIBODY <1 IU/mL
[2021-01-24 23:11] LABS: ANA SCREEN POSITIVE (NEGATIVE)
[2021-01-24 23:17] LABS: ANA PATTERN Nuclear, Homogeneous; ANA TITER 1:40 titer
[2021-01-24 23:26] LABS: CYCLIC CITRULL PEPTIDE CCP IGG <16 UNITS
== END 2021-01-21 23:59 | disposition home or self-care (01) ==
LOC: LAB.N 10:53
PROVIDERS: ATTEND Family Medicine
DX: M25.562 Pain in left knee (principal); M25.561 Pain in right knee
CPT/HCPCS: 36415; 84550; 85025; 85027; 85651; 86038; 86140; 86200; 86225; 86430

== ENCOUNTER 2021-03-13 08:00 | Outpatient (CLI) | payer OTHER, MEDICAID ==
[2021-03-13 17:13] LABS: BILIRUBIN,URINE NEGATIVE (NEGATIVE); GLUCOSE, URINE (UA) NEGATIVE (NEGATIVE); KETONES,URINE (UA) NEGATIVE (NEGATIVE); LEUKOCYTE ESTERASE, URINE NEGATIVE (NEGATIVE); NITRITE,URINE NEGATIVE (NEGATIVE); OCCULT BLOOD,URINE NEGATIVE (NEGATIVE); PROTEIN,URINE NEGATIVE (NEGATIVE); UROBILINOGEN,URINE 0.2 (NORMAL) E.U./dL (NORMAL)
[2021-03-13 17:21] LABS: CLARITY,URINE CLEAR (CLEAR); RBC,URINE 0-5 /HPF (0-5); SQUAMOUS EPITHELIAL CELL,UR RARE Squamous (<= Few); WBC,URINE 0-3 /HPF (0-5)
[2021-03-13 17:22] LABS: BACTERIA,URINE None Seen /HPF (None Seen)
== END 2021-03-13 23:59 | disposition home or self-care (01) ==
LOC: LAB.WC 08:00
PROVIDERS: ATTEND Obstetrics & Gynecology
DX: L29.8 Other pruritus (principal)
CPT/HCPCS: 81001; 87086

== ENCOUNTER 2021-03-14 08:00 | Outpatient (CLI) | payer OTHER, MEDICAID ==
[2021-03-15 00:18] LABS: BACTERIAL VAGINOSIS DNA NEGATIVE (NEGATIVE); CANDIDA GLABRATA DNA NEGATIVE (NEGATIVE); CANDIDA GROUP DNA POSITIVE (NEGATIVE); CANDIDA KRUSEI DNA NEGATIVE (NEGATIVE); TRICHOMONAS VAGINALIS DNA NEGATIVE (NEGATIVE)
== END 2021-03-14 23:59 | disposition home or self-care (01) ==
LOC: LAB.WC 08:00
PROVIDERS: ATTEND Obstetrics & Gynecology
DX: L29.8 Other pruritus (principal)
CPT/HCPCS: 87661; 87801

== ENCOUNTER 2022-03-12 07:48 | Outpatient (CLI) | payer MEDICAID ==
[2022-03-12 08:32] LABS: THYROID STIMULATING HORMONE < 0.08 uIU/mL (0.34-5.60)
== END 2022-03-12 07:49 | disposition home or self-care (01) ==
LOC: LAB 07:48
PROVIDERS: ATTEND Physician Assistant Medical
DX: E04.9 Nontoxic goiter, unspecified (principal); H05.249 Constant exophthalmos, unspecified eye
CPT/HCPCS: 36415; 84436; 84443; 84480

== ENCOUNTER 2022-03-21 11:41 | Outpatient (CLI) | payer MEDICAID ==
--- NOTE | 2022-03-21 16:48 | Ultrasound Report ---
PROCEDURE: [facility] INDICATIONS: ENLARGED THYROID TECHNIQUE: Real-time scanning was performed of the thyroid gland, with image documentation. COMPARISON: None FINDINGS: Enlarged, heterogeneous thyroid. Right: Measures 6.3 x 3.1 x 2.8 cm. No measurable nodules. Left: Measures 5.8 x 2.6 x 2.9 cm. No measurable nodules. Isthmus: Measures 0.7 cm. IMPRESSION: Enlarged, heterogeneous thyroid most consistent with thyroiditis. Reviewed by: Eric Ribera on 03/21/2022 4:46 PM PST Approved by: Eric Ribera on 03/21/2022 4:46 PM PST Station ID: [id number]
== END 2022-03-21 11:42 | disposition home or self-care (01) ==
LOC: DI 11:41
PROVIDERS: ATTEND Physician Assistant Medical
DX: H05.249 Constant exophthalmos, unspecified eye (principal); E04.9 Nontoxic goiter, unspecified

== ENCOUNTER 2022-05-02 16:12 | Outpatient (CLI) | payer MEDICAID ==
[2022-05-02 16:57] LABS: ALBUMIN 4.6 g/dL (3.2-5.5); ALBUMIN/GLOBULIN RATIO 1.4 (1.0-2.2); BILIRUBIN,TOTAL 0.4 mg/dL (0.2-1.0); CALCIUM 8.9 mg/dL (8.5-10.3); CREATININE 0.7 mg/dL (0.4-1.0); POTASSIUM 3.6 mmol/L (3.5-5.0); TOTAL PROTEIN 7.9 g/dL (6.7-8.2)
[2022-05-02 17:16] LABS: THYROID STIMULATING HORMONE < 0.08 uIU/mL (0.34-5.60)
[2022-05-02 17:17] LABS: FREE T3 3.13 pg/mL (2.5-3.9)
[2022-05-02 17:18] LABS: FREE T4 (FREE THYROXINE) 0.71 ng/dL (0.58-1.64)
[2022-05-02 17:19] LABS: BASOPHILS # (AUTO) 0.1 10^3/uL (0.0-0.1); BASOPHILS % (AUTO) 0.6 %; EOSINOPHILS # (AUTO) 0.2 10^3/uL (0.0-0.7); EOSINOPHILS % (AUTO) 1.7 %; HCT - HEMATOCRIT 37.6 % (37.0-47.0); HGB - HEMOGLOBIN 12.5 g/dL (12.0-16.0); LYMPHOCYTES % (AUTO) 26.5 %; MEAN CORPUSCULAR HEMOGLOBIN 26.4 pg (27.0-31.0); MEAN CORPUSCULAR HGB CONC 33.2 g/dL (32.0-36.0); MEAN CORPUSCULAR VOLUME 79.5 fL (81.0-99.0); MEAN PLATELET VOLUME 9.6 fL (7.9-10.8); MONOCYTES # (AUTO) 0.5 10^3/uL (0.0-1.0); MONOCYTES % (AUTO) 4.3 %; NEUTROPHILS # (AUTO) 7.6 10^3/uL (1.5-6.6); NEUTROPHILS % (AUTO) 66.6 %; PLT - PLATELET COUNT 364 10^3/uL (130-450); RED BLOOD COUNT 4.73 10^6/uL (4.20-5.40); RED CELL DISTRIBUTION WIDTH 14.5 % (12.0-15.0); WHITE BLOOD COUNT 11.3 x10^3/uL (4.8-10.8)
[2022-05-04 08:10] LABS: THYROTROPIN RECEPTOR AB SERUM 13.4 IU/L (0.00-1.75)
== END 2022-05-02 16:13 | disposition home or self-care (01) ==
LOC: LAB 16:12
PROVIDERS: ATTEND Internal Medicine Endocrinology, Diabetes & Metabolism
DX: E05.90 Thyrotoxicosis, unspecified without thyrotoxic crisis or storm (principal)
CPT/HCPCS: 36415; 80053; 81599; 83520; 84439; 84443; 84445; 84480; 84481; 85025; 86376; 86800

== ENCOUNTER 2022-05-28 11:51 | Outpatient (CLI) | payer MEDICAID ==
[2022-05-28 12:20] LABS: ALBUMIN 4.9 g/dL (3.2-5.5); ALBUMIN/GLOBULIN RATIO 1.6 (1.0-2.2); BILIRUBIN,TOTAL 0.5 mg/dL (0.2-1.0); CALCIUM 8.8 mg/dL (8.5-10.3); CREATININE 0.7 mg/dL (0.4-1.0); MAGNESIUM 2.4 mg/dL (1.7-2.8); POTASSIUM 3.7 mmol/L (3.5-5.0)
[2022-05-31 16:08] LABS: A/G RATIO 1.5 (0.7-1.7); ALBUMIN 4.3 g/dL (2.9-4.4); ALPHA-1-GLOBULIN 0.2 g/dL (0.0-0.4); ALPHA-2-GLOBULIN 0.7 g/dL (0.4-1.0); GLOBULIN TOTAL 2.9 g/dL (2.2-3.9); IMMUNOGLOBULIN A (IGA) 144 mg/dL (87-352); IMMUNOGLOBULIN G (IGG) 1121 mg/dL (586-1602); IMMUNOGLOBULIN M (IGM) 31 mg/dL (26-217); M-SPIKE Not Observed g/dL (Not Observed); PROTEIN TOTAL 7.2 g/dL (6.0-8.5)
== END 2022-05-28 11:52 | disposition home or self-care (01) ==
LOC: LAB 11:51
PROVIDERS: ATTEND Physician Assistant Medical
DX: E05.00 Thyrotoxicosis with diffuse goiter without thyrotoxic crisis or storm (principal); R25.2 Cramp and spasm
CPT/HCPCS: 36415; 80053; 82784; 83735; 84155; 84165; 86334

== ENCOUNTER 2022-06-18 18:34 | Outpatient (CLI) | payer MEDICAID ==
[2022-06-18 19:44] LABS: THYROID STIMULATING HORMONE 17.01 uIU/mL (0.34-5.60)
[2022-06-18 20:20] LABS: FREE T4 (FREE THYROXINE) < 0.25 ng/dL (0.58-1.64)
== END 2022-06-18 18:35 | disposition home or self-care (01) ==
LOC: LAB 18:34
PROVIDERS: ATTEND Internal Medicine Endocrinology, Diabetes & Metabolism
DX: E05.90 Thyrotoxicosis, unspecified without thyrotoxic crisis or storm (principal)
CPT/HCPCS: 36415; 84439; 84443; 84480; 84481

== ENCOUNTER 2022-07-05 19:46 | Emergency (ER) | payer MEDICAID ==
--- NOTE | 2022-07-05 20:02 | ED Physician Documentation ---
PD HPI ABD PAIN - Stated complaint Stated Complaint: ABD PAIN - Chief complaint Chief Complaint: Abd Pain - History obtained from History obtained from: Patient - Additional information Additional information: 27-year-old female presented with upper abdominal pain earlier today, the pain has essentially resolved by the time she arrived here but she reports in general the course last 2 weeks she has not felt 100%. She states today prior to arrival, she had a sudden severe 9 out of 10 pain across the upper part of the abdomen that lasted about 10 minutes and then subsided. She has had mild nausea the last 2 weeks, no vomiting. Has not wanted to each much because it causes her to feel nauseous. She did have a week or so of non bloody diarrhea last week that resolved. She has not had a fever or chills, no chest pain or difficulty breathing, no dysuria urgency or frequency. She has not been on any antibiotics in the last few months, no hospitalizations, no travel. She has not eaten any atypical foods. She has been taking quite a bit of Pepto-Bismol recently, at least once or twice a day for the last week or so and states that it is helped her symptoms. She has not had a recurrence of the pain that she had earlier today. Review of Systems Constitutional: reports: Reviewed and negative Eyes: reports: Reviewed and negative Ears: reports: Reviewed and negative Nose: reports: Reviewed and negative Throat: reports: Reviewed and negative Cardiac: reports: Reviewed and negative Respiratory: reports: Reviewed and negative GI: reports: Abdominal Pain, Nausea, Diarrhea. 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 HEENT: None Psych: None, Anxiety Musculoskeletal: None Derm: None - Past Surgical History Past Surgical History: Yes General: Cholecystectomy - Present Medications Home Medications: Ambulatory Orders Medication Instructions Recorded Confirmed raNITIdine [Zantac] 150 mg PO BID #60 tablet 11/06/17 07/05/22 Docusate Sodium 250Mg Capsule 600 mg PO Q6H PRN 12/03/17 07/05/22 [Colace 250Mg Capsule] Ibuprofen [Motrin] 800 mg PO Q8H PRN #30 tablet 12/03/17 07/05/22 Metoclopramide [Reglan] 10 mg PO Q6H PRN #15 tablet 12/03/17 07/05/22 Fluconazole 200 mg PO Q7D #3 tablet 09/12/19 07/05/22 Famotidine [Pepcid] 20 mg PO BID #60 tablet 07/05/22 methIMAzole [Methimazole] 5 mg PO 07/05/22 - Allergies Allergies/Adverse Reactions: Allergies Allergy/AdvReac Type Severity Reaction Status Date / Time No Known Drug Allergies Allergy Verified 09/12/19 21:23 - Social History Does the pt smoke?: No Smoking Status: Never smoker Does the pt drink ETOH?: No Does the pt have substance abuse?: No - Immunizations Immunizations are current?: Yes - POLST Patient has POLST: No PD ED PE NORMAL - Vitals Vital signs reviewed: Yes - General General: Alert and oriented X 3, No acute distress, Well developed/nourished - HEENT HEENT: Atraumatic, Pharynx benign - Neck Neck: Supple, no meningeal sign, No JVD - Cardiac Cardiac: RRR, No murmur, No gallop, No rub - Respiratory Respiratory: No respiratory distress, Clear bilaterally - Abdomen Abdomen: Normal bowel sounds, Soft, Non tender, Non distended, No organomegaly, Other (no reproducible pain on exam, no peritoneal signs) - Back Back: No CVA TTP - Derm Derm: Normal color, Warm and dry - Neuro Neuro: Alert and oriented X 3 Eye Opening: Spontaneous Motor: Obeys Commands Verbal: Oriented GCS Score: 15 Results - Vitals Vitals: Vital Signs - 24 hr 07/05/22 19:54 Temperature 36.7 C Heart Rate 80 Respiratory 18 Rate Blood Pressure 145/75 H O2 Saturation 99 Oxygen O2 Source Room air - Labs Labs: Laboratory Tests 07/05/22 07/05/22 07/05/22 20:16 20:18 20:18 WBC 10.8 RBC 4.42 Hgb 12.3 Hct 37.3 MCV 84.4 MCH 27.8 MCHC 33.0 RDW 14.6 Plt Count 315 MPV 9.5 Neut # (Auto) 5.6 Lymph # (Auto) 4.2 H [place] # (Auto) 0.5 Eos # (Auto) 0.6 Baso # (Auto) 0.1 Absolute Nucleated RBC 0.00 Nucleated RBC % 0.0 Sodium 140 Potassium 3.2 L Chloride 102 Carbon Dioxide 26 Anion Gap 12.0 BUN 12 Creatinine 0.6 Estimated GFR (MDRD) 119 Glucose 86 Calcium 9.4 Total Bilirubin 0.4 AST 35 ALT 25 Alkaline Phosphatase 120 Total Protein 8.4 H Albumin 4.8 Globulin 3.6 Albumin/Globulin Ratio 1.3 Lipase 63 H Urine Color YELLOW Urine Clarity CLEAR Urine pH 6.0 Ur Specific [place] 1.015 Urine Protein NEGATIVE Urine Glucose (UA) NEGATIVE Urine Ketones NEGATIVE Urine Occult Blood MODERATE H Urine Nitrite NEGATIVE Urine Bilirubin NEGATIVE Urine Urobilinogen 0.2 (NORMAL) Ur Leukocyte Esterase TRACE H Urine RBC 6-10 H Urine WBC 0-3 Ur Squamous Epith Cells FEW Squamous Urine Bacteria Rare Ur Microscopic Review INDICATED Urine Culture Comments INDICATED Urine HCG, Qual NEGATIVE PD Medical Decision Making - ED course Complexity details: reviewed results, re-evaluated patient, considered differential, d/w patient ED course: 27-year-old female presented with an episode of upper abdominal pain that lasted about 10 minutes earlier today prior to arrival as well as a couple weeks of Intermittent mild nausea with decreased p.o. intake. Patient is well-appearing on physical exam, nontoxic with stable vital signs. Her physical exam is reassuring, I cannot reproduce any pain with palpation on exam and she has no distention or peritoneal signs. Her pain seems more localized to the mid epigastrium and I am says fishes for a gastric ulcer Or dyspepsia. We trialed a dose of Maalox in famotidine here while labs were pending and this did cause her improvement in her symptoms. Labs are largely reassuring, she has very mild elevation in her lipase which I think is nonspecific And I have lower suspicion for pancreatitis. She has already had her gallbladder removed and is therefore low suspicion for hepatobiliary etiology. Her urinalysis Is a not suspicious for infection and the patient has no dysuria urgency or frequency. I did obtain a KUB and per my read this was negative. I do not think we need to proceed with a CT scan at this point time as patient is very well-appearing and had some improvement with today medications attempted. I recommended that she adhere to a bland diet, avoid any further Pepto use, avoid acidic foods coffee, Alcohol, and high-fat foods. I have prescribed famotidine for patient to take twice daily and recommended a 2-week trial. If no improvement in the course that time, I advised her to see her PCP for possible GI follow-up. If worsening, including fever, increasing pain, vomiting or other new concerns, patient encouraged to return to the ER. Departure - Departure Disposition: 01 Home, Self Care Clinical Impression: Epigastric pain Condition: Good Instructions: ED Abdominal Pain Female Non-Specific Abdominal Pain Prescriptions: Famotidine [Pepcid] 20 mg PO BID #60 tablet Comments: You presented with an episode of severe pain earlier today. Your exam now, is reassuring, your labs are fairly stable and I do not see anything abnormal on the x-rays. You do have a very mildly elevated lipase, which is a pancreatic enzyme, and this can be elevated due to nausea or vomiting but also can be a very mild pancreatitis which is inflammation of the pancreas. Typically with pancreatitis, the lipase is going to be extremely elevated and years is only slightly above normal. The treatment for this is largely supportive including a bland diet. I suspected your symptoms are more likely due to gastric ulcers and I recommend that you start an acid catalog librarian which I have prescribed though it is also [id number]. Please reduce the use of the Pepto if possible. Adhere to a bland diet, avoid any acidic, high fat or high spice foods. Also avoid any alcohol. If your symptoms do not improve over the course the next week or 2 with the acid catalog librarian, please follow-up with your primary doctor who can arrange for GI referral if indicated or testing for H. pylori. If you develop worsening symptoms, such as increased pain, fever, vomiting or other new concerns, return to the ER.
[2022-07-05 20:26] LABS: BILIRUBIN,URINE NEGATIVE (NEGATIVE); GLUCOSE, URINE (UA) NEGATIVE (NEGATIVE); KETONES,URINE (UA) NEGATIVE (NEGATIVE); LEUKOCYTE ESTERASE, URINE TRACE (NEGATIVE); NITRITE,URINE NEGATIVE (NEGATIVE); OCCULT BLOOD,URINE MODERATE (NEGATIVE); PROTEIN,URINE NEGATIVE (NEGATIVE); UROBILINOGEN,URINE 0.2 (NORMAL) E.U./dL (NORMAL)
[2022-07-05 20:27] LABS: CLARITY,URINE CLEAR (CLEAR)
[2022-07-05 20:27] LABS: BASOPHILS # (AUTO) 0.1 10^3/uL (0.0-0.1); BASOPHILS % (AUTO) 0.6 %; EOSINOPHILS # (AUTO) 0.6 10^3/uL (0.0-0.7); EOSINOPHILS % (AUTO) 5.4 %; HCT - HEMATOCRIT 37.3 % (37.0-47.0); HGB - HEMOGLOBIN 12.3 g/dL (12.0-16.0); LYMPHOCYTES # (AUTO) 4.2 10^3/uL (1.5-3.5); LYMPHOCYTES % (AUTO) 38.3 %; MEAN CORPUSCULAR HEMOGLOBIN 27.8 pg (27.0-31.0); MEAN CORPUSCULAR VOLUME 84.4 fL (81.0-99.0); MEAN PLATELET VOLUME 9.5 fL (7.9-10.8); MONOCYTES # (AUTO) 0.5 10^3/uL (0.0-1.0); MONOCYTES % (AUTO) 4.2 %; NEUTROPHILS # (AUTO) 5.6 10^3/uL (1.5-6.6); NEUTROPHILS % (AUTO) 51.3 %; PLT - PLATELET COUNT 315 10^3/uL (130-450); RED BLOOD COUNT 4.42 10^6/uL (4.20-5.40); RED CELL DISTRIBUTION WIDTH 14.6 % (12.0-15.0); WHITE BLOOD COUNT 10.8 x10^3/uL (4.8-10.8)
[2022-07-05 20:30] LABS: HCG UR QUAL NEGATIVE
[2022-07-05 20:37] LABS: ALBUMIN 4.8 g/dL (3.2-5.5); ALBUMIN/GLOBULIN RATIO 1.3 (1.0-2.2); BILIRUBIN,TOTAL 0.4 mg/dL (0.2-1.0); CALCIUM 9.4 mg/dL (8.5-10.3); CREATININE 0.6 mg/dL (0.4-1.0); POTASSIUM 3.2 mmol/L (3.5-5.0); TOTAL PROTEIN 8.4 g/dL (6.7-8.2)
[2022-07-05 20:39] LABS: BACTERIA,URINE Rare /HPF (None Seen); SQUAMOUS EPITHELIAL CELL,UR FEW Squamous (<= Few); WBC,URINE 0-3 /HPF (0-5)
[2022-07-05] MEDS ORDERED: FAMOTIDINE 20 MG TABLET PO STA (20:43)
[2022-07-05] MEDS ORDERED: MAG HYDROX/AL HYDROX/SIMETH 30 ML UDC PO STA (20:43)
[2022-07-05 21:44] VITALS: BP 144/82
--- NOTE | 2022-07-05 22:24 | XRAY Report ---
PROCEDURE: Abdomen Acute INDICATIONS: abd pain, non specific TECHNIQUE: 2 views of the abdomen were acquired. COMPARISON: None. FINDINGS: Surgical changes and devices: There are surgical clips in the right upper quadrant. Chest: Lungs are clear. Heart size is normal. No pleural effusions. No pneumoperitoneum. Bowel: No pneumoperitoneum. The bowel gas pattern is normal. Stool load within normal limits. Soft tissues: No suspicious abdominal calcifications. Bones: No suspicious bony abnormalities. IMPRESSION: 1. No acute cardiopulmonary disease. 2. No acute intra-abdominal radiographic abnormality. Reviewed by: Eder Marino MD on 07/05/2022 10:23 PM PDT Approved by: Eder Marino MD on 07/05/2022 10:23 PM PDT Station ID: [id number]
== END 2022-07-05 21:43 | disposition home or self-care (01) ==
LOC: ED 19:46
DX: R10.13 Epigastric pain (principal)
CPT/HCPCS: 36415; 74022; 80053; 81001; 81025; 83690; 85025; 87086; 99283; 99284; A9270; 81003

== ENCOUNTER 2022-08-02 08:00 | Outpatient (CLI) | payer MEDICAID ==
[2022-08-02 21:37] LABS: BASOPHILS # (AUTO) 0.1 10^3/uL (0.0-0.1); BASOPHILS % (AUTO) 0.8 %; EOSINOPHILS # (AUTO) 0.7 10^3/uL (0.0-0.7); EOSINOPHILS % (AUTO) 6.3 %; HCT - HEMATOCRIT 37.4 % (37.0-47.0); HGB - HEMOGLOBIN 12.4 g/dL (12.0-16.0); LYMPHOCYTES # (AUTO) 4.1 10^3/uL (1.5-3.5); LYMPHOCYTES % (AUTO) 40.1 %; MEAN CORPUSCULAR HEMOGLOBIN 27.8 pg (27.0-31.0); MEAN CORPUSCULAR HGB CONC 33.2 g/dL (32.0-36.0); MEAN CORPUSCULAR VOLUME 83.9 fL (81.0-99.0); MEAN PLATELET VOLUME 9.6 fL (7.9-10.8); MONOCYTES # (AUTO) 0.5 10^3/uL (0.0-1.0); MONOCYTES % (AUTO) 4.9 %; NEUTROPHILS # (AUTO) 4.9 10^3/uL (1.5-6.6); NEUTROPHILS % (AUTO) 47.7 %; PLT - PLATELET COUNT 303 10^3/uL (130-450); RED BLOOD COUNT 4.46 10^6/uL (4.20-5.40); RED CELL DISTRIBUTION WIDTH 13.3 % (12.0-15.0); WHITE BLOOD COUNT 10.3 x10^3/uL (4.8-10.8)
[2022-08-02 21:51] LABS: ALBUMIN 4.8 g/dL (3.2-5.5); ALBUMIN/GLOBULIN RATIO 1.4 (1.0-2.2); BILIRUBIN,TOTAL 0.3 mg/dL (0.2-1.0); CALCIUM 8.8 mg/dL (8.5-10.3); CREATININE 0.7 mg/dL (0.4-1.0); POTASSIUM 3.6 mmol/L (3.5-5.0); TOTAL PROTEIN 8.3 g/dL (6.7-8.2)
[2022-08-02 23:00] LABS: THYROID STIMULATING HORMONE 0.82 uIU/mL (0.34-5.60)
[2022-08-02 23:02] LABS: FREE T4 (FREE THYROXINE) 0.78 ng/dL (0.58-1.64)
== END 2022-08-02 23:59 | disposition home or self-care (01) ==
LOC: LAB 08:00
PROVIDERS: ATTEND Internal Medicine Endocrinology, Diabetes & Metabolism
DX: E05.90 Thyrotoxicosis, unspecified without thyrotoxic crisis or storm (principal)
CPT/HCPCS: 36415; 80053; 84439; 84443; 85025

== ENCOUNTER 2022-08-02 21:42 | Outpatient (CLI) | payer MEDICAID | END 2022-08-02 21:43 | disposition home or self-care (01) | LOC: LAB 21:42 | PROVIDERS: ATTEND Internal Medicine Endocrinology, Diabetes & Metabolism | DX: Z53.9 Procedure and treatment not carried out, unspecified reason (principal) ==

== ENCOUNTER 2022-09-11 14:25 | Outpatient (CLI) | payer MEDICAID ==
[2022-09-11 14:44] LABS: BASOPHILS % (AUTO) 0.5 %; EOSINOPHILS # (AUTO) 0.2 10^3/uL (0.0-0.7); EOSINOPHILS % (AUTO) 2.8 %; HCT - HEMATOCRIT 35.9 % (37.0-47.0); HGB - HEMOGLOBIN 11.8 g/dL (12.0-16.0); LYMPHOCYTES # (AUTO) 3.5 10^3/uL (1.5-3.5); LYMPHOCYTES % (AUTO) 40.2 %; MEAN CORPUSCULAR HGB CONC 32.9 g/dL (32.0-36.0); MEAN CORPUSCULAR VOLUME 85.3 fL (81.0-99.0); MEAN PLATELET VOLUME 9.5 fL (7.9-10.8); MONOCYTES # (AUTO) 0.6 10^3/uL (0.0-1.0); MONOCYTES % (AUTO) 6.7 %; NEUTROPHILS # (AUTO) 4.3 10^3/uL (1.5-6.6); NEUTROPHILS % (AUTO) 49.7 %; PLT - PLATELET COUNT 311 10^3/uL (130-450); RED BLOOD COUNT 4.21 10^6/uL (4.20-5.40); RED CELL DISTRIBUTION WIDTH 12.3 % (12.0-15.0); WHITE BLOOD COUNT 8.6 x10^3/uL (4.8-10.8)
[2022-09-11 14:53] LABS: ALBUMIN 4.5 g/dL (3.2-5.5); ALBUMIN/GLOBULIN RATIO 1.6 (1.0-2.2); BILIRUBIN,TOTAL 0.5 mg/dL (0.2-1.0); CALCIUM 9.6 mg/dL (8.5-10.3); CREATININE 0.6 mg/dL (0.6-1.3); POTASSIUM 3.7 mmol/L (3.5-4.5); TOTAL PROTEIN 7.4 g/dL (6.4-8.9)
== END 2022-09-11 14:26 | disposition home or self-care (01) ==
LOC: LAB 14:25
PROVIDERS: ATTEND Internal Medicine Endocrinology, Diabetes & Metabolism
DX: E05.90 Thyrotoxicosis, unspecified without thyrotoxic crisis or storm (principal)
CPT/HCPCS: 36415; 80053; 84439; 84443; 84481; 85025

== ENCOUNTER 2022-11-19 08:00 | Outpatient (CLI) | payer MEDICAID ==
[2022-11-19 20:03] LABS: BACTERIAL VAGINOSIS DNA NEGATIVE (NEGATIVE); CANDIDA GLABRATA DNA NEGATIVE (NEGATIVE); CANDIDA GROUP DNA NEGATIVE (NEGATIVE); CANDIDA KRUSEI DNA NEGATIVE (NEGATIVE); TRICHOMONAS VAGINALIS DNA NEGATIVE (NEGATIVE)
[2022-11-19 21:30] LABS: CHLAMYDIA TRACHOMATIS DNA NEGATIVE (NEGATIVE); NEISSERIA GONORRHOEAE DNA NEGATIVE (NEGATIVE)
== END 2022-11-19 23:59 | disposition home or self-care (01) ==
LOC: LAB.WC 08:00
PROVIDERS: ATTEND Nurse Practitioner
DX: Z11.3 Encounter for screening for infections with a predominantly sexual mode of transmission (principal)
CPT/HCPCS: 81514; 87491; 87591; 87661

== ENCOUNTER 2022-11-26 17:16 | Outpatient (CLI) | payer MEDICAID ==
[2022-11-26 18:11] LABS: THYROID STIMULATING HORMONE < 0.01 uIU/mL (0.34-5.60)
== END 2022-11-26 17:17 | disposition home or self-care (01) ==
LOC: LAB 17:16
PROVIDERS: ATTEND Internal Medicine Endocrinology, Diabetes & Metabolism
DX: E05.90 Thyrotoxicosis, unspecified without thyrotoxic crisis or storm (principal)
CPT/HCPCS: 36415; 84439; 84443; 84481

== ENCOUNTER 2023-03-04 18:31 | Outpatient (CLI) | payer MEDICAID ==
[2023-03-04 18:47] LABS: BASOPHILS % (AUTO) 0.5 %; EOSINOPHILS # (AUTO) 0.2 10^3/uL (0.0-0.7); HCT - HEMATOCRIT 36.9 % (37.0-47.0); LYMPHOCYTES # (AUTO) 3.7 10^3/uL (1.5-3.5); LYMPHOCYTES % (AUTO) 44.2 %; MEAN CORPUSCULAR HEMOGLOBIN 27.9 pg (27.0-31.0); MEAN CORPUSCULAR HGB CONC 32.5 g/dL (32.0-36.0); MEAN CORPUSCULAR VOLUME 85.8 fL (81.0-99.0); MEAN PLATELET VOLUME 9.3 fL (7.9-10.8); MONOCYTES # (AUTO) 0.6 10^3/uL (0.0-1.0); MONOCYTES % (AUTO) 7.1 %; NEUTROPHILS # (AUTO) 3.9 10^3/uL (1.5-6.6); NEUTROPHILS % (AUTO) 46.1 %; PLT - PLATELET COUNT 284 10^3/uL (130-450); RED CELL DISTRIBUTION WIDTH 12.3 % (12.0-15.0); WHITE BLOOD COUNT 8.5 x10^3/uL (4.8-10.8)
[2023-03-04 19:02] LABS: ALBUMIN 4.4 g/dL (3.2-5.5); ALBUMIN/GLOBULIN RATIO 1.5 (1.0-2.2); BILIRUBIN,TOTAL 0.2 mg/dL (0.2-1.0); CALCIUM 9.3 mg/dL (8.5-10.3); CREATININE 0.6 mg/dL (0.6-1.3); POTASSIUM 3.8 mmol/L (3.5-4.5); TOTAL PROTEIN 7.4 g/dL (6.4-8.9)
== END 2023-03-04 18:32 | disposition home or self-care (01) ==
LOC: LAB 18:31
PROVIDERS: ATTEND Internal Medicine Endocrinology, Diabetes & Metabolism
DX: E05.90 Thyrotoxicosis, unspecified without thyrotoxic crisis or storm (principal)
CPT/HCPCS: 36415; 80053; 84439; 84443; 84481; 85025

== ENCOUNTER 2023-07-26 11:48 | Outpatient (CLI) | payer BC, OTHER ==
[2023-07-26 11:59] LABS: BASOPHILS % (AUTO) 0.5 %; EOSINOPHILS # (AUTO) 0.2 10^3/uL (0.0-0.7); HCT - HEMATOCRIT 36.7 % (37.0-47.0); LYMPHOCYTES # (AUTO) 2.5 10^3/uL (1.5-3.5); LYMPHOCYTES % (AUTO) 33.3 %; MEAN CORPUSCULAR HEMOGLOBIN 27.8 pg (27.0-31.0); MEAN CORPUSCULAR HGB CONC 32.7 g/dL (32.0-36.0); MEAN PLATELET VOLUME 8.8 fL (7.9-10.8); MONOCYTES # (AUTO) 0.4 10^3/uL (0.0-1.0); MONOCYTES % (AUTO) 5.1 %; NEUTROPHILS # (AUTO) 4.3 10^3/uL (1.5-6.6); PLT - PLATELET COUNT 301 10^3/uL (130-450); RED BLOOD COUNT 4.32 10^6/uL (4.20-5.40); RED CELL DISTRIBUTION WIDTH 12.2 % (12.0-15.0); WHITE BLOOD COUNT 7.5 x10^3/uL (4.8-10.8)
[2023-07-26 12:18] LABS: ALBUMIN 4.8 g/dL (3.2-5.5); ALBUMIN/GLOBULIN RATIO 1.7 (1.0-2.2); BILIRUBIN,TOTAL 0.5 mg/dL (0.2-1.0); CALCIUM 9.5 mg/dL (8.5-10.3); CREATININE 0.7 mg/dL (0.6-1.3); POTASSIUM 3.9 mmol/L (3.5-4.5); TOTAL PROTEIN 7.7 g/dL (6.4-8.9)
[2023-07-26 12:30] LABS: THYROID STIMULATING HORMONE 0.07 uIU/mL (0.34-5.60)
== END 2023-07-26 11:49 | disposition home or self-care (01) ==
LOC: LAB 11:48
PROVIDERS: ATTEND Internal Medicine Endocrinology, Diabetes & Metabolism
DX: E05.90 Thyrotoxicosis, unspecified without thyrotoxic crisis or storm (principal)
CPT/HCPCS: 36415; 80053; 84439; 84443; 84481; 85025